=== PATIENT | female | born 1970 | race Caucasian/White ===

== ENCOUNTER → 2016-12-28 | Outpatient (CLI) | payer OTHER ==
--- NOTE | 2016-12-28 12:35 | REP ---
Clinical: Right upper quadrant pain. Technique: Real time alexandra scale ultrasound examination using curved array transducer. Findings: Liver demonstrates subcentimeter left lobe cyst and 3.1 cm right lobe lesion which is otherwise nonspecific. Gallbladder and biliary system are normal and there is no evidence for gallstones, wall thickening or pericholecystic fluid. No biliary ductal dilatation is appreciated and the common bile duct measures 4.8 mm diameter. Pancreas is incompletely evaluated. Right kidney is normal and without hydronephrosis measuring 11.7 x 4.7 x 4.3 cm. Impression: 1. Liver demonstrates subcentimeter cyst and 3 cm isoechoic nonspecific lesion in the right lobe. 2. Normal right kidney, gallbladder and biliary system. Signed by Brandon Leon MD 12/28/2016 12:27 P
== END ==
LOC: M LRY 08:26
PROVIDERS: ATTEND Physician Assistant
DX: K76.89 Other specified diseases of liver (principal); R10.11 Right upper quadrant pain

== ENCOUNTER → 2017-07-26 | Outpatient (CLI) | payer OTHER ==
--- NOTE | 2017-07-26 15:32 | REPMRS ---
Patient History The patient states she had a clinical breast exam in 07/2017. Family history of breast cancer in paternal aunt at age 50 or over and breast cancer in paternal grandmother under age 50. Benign US guided breast biopsy of the right breast, 2010. Took hormonal contraceptives for 14 years. Digital Woman Screen Mammo: July 26, 2017 - Exam #: [id number] Bilateral CC and MLO view(s) were taken. Technologist: Mirella Tracy, Technologist Prior study comparison: June 29, 2016, digital woman screen mammo performed at [facility] to [facility]. July 08, 2015, digital woman screen mammo performed at [facility]. November 10, 2013, left breast digital mammo diagnostic unilateral, performed at [facility]. FINDINGS: There are scattered fibroglandular densities. There is a needle biopsy marker clip in the right breast. There has been no change in the appearance of the mammogram from the prior studies. There is a mild amount of scattered fibroglandular density which is fairly symmetric. There is no interval development of dominant mass, architectural distortion, or clustered microcalcification suggestive of malignancy. ASSESSMENT: BI-RADS/ACR category 2 mammogram. Benign finding(s). Recommendation Routine screening mammogram in 1 year (for women over age 40). This mammogram was interpreted with the aid of an FDA-approved computer-aided dectection system. Electronically Signed By: Ron Gastelum MD 07/26/17 1632
== END ==
LOC: M WHC 14:07
PROVIDERS: ATTEND Family Medicine
DX: Z12.31 Encounter for screening mammogram for malignant neoplasm of breast (principal)

== ENCOUNTER 2017-12-24 12:59 | Emergency (ER) | payer OTHER ==
[2017-12-24] MEDS: NS 1,000 ML IV (14:30)
[2017-12-24 14:44] LABS: BASO % 0.2 % (0.0-1.0); EOS % 0.4 % (0.0-3.0); HEMATOCRIT 35.3 % (36.0-47.0); IMMATURE GRANULOCYTE % 0.3 % (0-3.0); LYMPH # 2.1 10^3/uL (1.5-4.5); MEAN CORPUSCULAR HEMOGLOBIN 31.6 pg (27.0-33.0); MEAN CORPUSCULAR VOLUME 92.9 fl (80.0-96.0); MONO # 0.5 10^3/uL (0.0-0.8); MONO % 4.7 % (0.0-5.0); NEUTROPHILS # 7.4 10^3/uL (1.8-7.7); NEUTROPHILS % 73.4 % (36.0-66.0); PLATELET COUNT, AUTOMATED 239 10^3/uL (150-450); RED CELL DISTRIBUTION WIDTH 11.9 % (11.5-14.5)
[2017-12-24 14:50] LABS: AMORPHOUS SEDIMENT RFX SMALL (NEGATIVE); KETONE, URINE AUTO RFX NEGATIVE (NEGATIVE); LEUKOCYTE ESTERASE UR AUTO RFX NEGATIVE (NEGATIVE); MUCUS, URINE RFX SMALL (NEGATIVE); NITRITE, URINE AUTO RFX NEGATIVE (NEGATIVE); RBC, URINE AUTO RFX 49 /HPF (0-3); SPECIFIC GRAVITY UR AUTO RFX 1.008 (1.002-1.035); SQUAM EPITHELIAL CELL UR AURFX 1 /HPF (0-6); WBC, URINE AUTO RFX 1 /HPF (0-3)
[2017-12-24 15:06] LABS: ANION GAP 7 MEQ/L (8-16); BLOOD UREA NITROGEN 12 MG/DL (7-18); CALCIUM LEVEL 8.5 MG/DL (8.5-10.1); CARBON DIOXIDE LEVEL 27 MEQ/L (21-32); CHLORIDE LEVEL 108 MEQ/L (98-107); CREATININE FOR GFR 0.67 MG/DL (0.55-1.30); GLOMERULAR FILTRATION RATE > 60.0 (>58); GLUCOSE, FASTING 90 MG/DL (70-100); POTASSIUM SERUM 3.9 MEQ/L (3.5-5.1); SODIUM LEVEL 142 MEQ/L (136-145)
== END 2017-12-24 15:49 | disposition home or self-care (01) ==
LOC: M ED 12:59
DX: N13.1 Hydronephrosis with ureteral stricture, not elsewhere classified (principal)
CPT/HCPCS: 80048

== ENCOUNTER → 2017-12-24 | Outpatient (CLI) | payer OTHER | LOC: M RAD 11:34 | DX: R10.9 Unspecified abdominal pain (principal) ==

== ENCOUNTER → 2017-12-24 | Outpatient (REF) | payer OTHER ==
[2017-12-24 13:54] LABS: APPEARANCE, URINE HAZY (CLEAR); BACTERIA, URINE AUTO NEGATIVE (NEGATIVE); BILIRUBIN, URINE AUTO NEGATIVE (NEGATIVE); BLOOD, URINE BLOOD 3+ (NEGATIVE); COLOR, URINE YELLOW (YELLOW); GLUCOSE, URINE (UA) AUTO NEGATIVE (NEGATIVE); KETONE, URINE AUTO TRACE mg/dL (NEGATIVE); LEUKOCYTE ESTERASE, URINE AUTO NEGATIVE (NEGATIVE); MUCUS, URINE SMALL (NEGATIVE); NITRITE, URINE AUTO NEGATIVE (NEGATIVE); PROTEIN, URINE AUTO NEGATIVE (NEGATIVE); RBC, URINE AUTO 121 /HPF (0-3); SPECIFIC GRAVITY URINE AUTO 1.025 (1.002-1.035); SQUAMOUS EPITHELIAL CELL UR AU 1 /HPF (0-6); UROBILINOGEN, URINE AUTO 0.2 mg/dL (0.0-2.0); WBC, URINE AUTO 2 /HPF (0-3)
== END ==
LOC: M SMT 13:20
DX: R10.9 Unspecified abdominal pain (principal)
CPT/HCPCS: 81001

== ENCOUNTER → 2018-01-09 | Outpatient (CLI) | payer OTHER | LOC: M LRY 13:14 | DX: Z01.818 Encounter for other preprocedural examination (principal); N20.1 Calculus of ureter ==

== ENCOUNTER → 2018-01-09 | Outpatient (REF) | payer OTHER ==
[2018-01-09 18:00] LABS: INR 0.97
[2018-01-09 18:01] LABS: PARTIAL THROMBOPLASTIN TIME 29.4 SECONDS (26.8-37.9)
[2018-01-09 18:20] LABS: ANION GAP 8 MEQ/L (8-16); BLOOD UREA NITROGEN 12 MG/DL (7-18); CALCIUM LEVEL 8.7 MG/DL (8.5-10.1); CARBON DIOXIDE LEVEL 26 MEQ/L (21-32); CHLORIDE LEVEL 108 MEQ/L (98-107); GLOMERULAR FILTRATION RATE > 60.0 (>58); GLUCOSE, FASTING 76 MG/DL (70-100); POTASSIUM SERUM 4.1 MEQ/L (3.5-5.1); SODIUM LEVEL 142 MEQ/L (136-145)
[2018-01-09 18:29] LABS: HEMOGLOBIN 12.9 g/dl (12.0-16.0); MEAN CORPUSCULAR HEMOGLOBIN 30.5 pg (27.0-33.0); MEAN CORPUSCULAR HGB CONC 32.3 g/dl (32.0-36.5); MEAN CORPUSCULAR VOLUME 94.6 fl (80.0-96.0); PLATELET COUNT, AUTOMATED 264 10^3/uL (150-450); RED BLOOD COUNT 4.23 10^6/uL (4.00-5.40); RED CELL DISTRIBUTION WIDTH 11.9 % (11.5-14.5); WHITE BLOOD COUNT 9.9 10^3/uL (4.0-10.0)
[2018-01-09 18:45] LABS: APPEARANCE, URINE CLEAR (CLEAR); BACTERIA, URINE AUTO 1+ (NEGATIVE); BILIRUBIN, URINE AUTO NEGATIVE (NEGATIVE); BLOOD, URINE BLOOD NEGATIVE (NEGATIVE); COLOR, URINE STRAW (YELLOW); GLUCOSE, URINE (UA) AUTO NEGATIVE (NEGATIVE); KETONE, URINE AUTO NEGATIVE (NEGATIVE); LEUKOCYTE ESTERASE, URINE AUTO NEGATIVE (NEGATIVE); NITRITE, URINE AUTO NEGATIVE (NEGATIVE); PROTEIN, URINE AUTO NEGATIVE (NEGATIVE); RBC, URINE AUTO 0 /HPF (0-3); SPECIFIC GRAVITY URINE AUTO 1.003 (1.002-1.035); SQUAMOUS EPITHELIAL CELL UR AU 2 /HPF (0-6); UROBILINOGEN, URINE AUTO 0.2 mg/dL (0.0-2.0); WBC, URINE AUTO 1 /HPF (0-3)
== END ==
LOC: M LABSMT 13:12
DX: N20.1 Calculus of ureter (principal); Z01.818 Encounter for other preprocedural examination

== ENCOUNTER 2018-01-15 12:15 | Day surgery (SDC) | payer OTHER ==
[2018-01-15] MEDS: LR 1,000 ML IV (13:05)
[2018-01-15] MEDS ORDERED: LIDOCAINE 2% INJ 100 MG/5 ML SDV (FOR ANES.) As Ordered (15:09)
[2018-01-15] MEDS ORDERED: fentaNYL 250 MCG/5 ML INJECTION (J3010) As Ordered (15:09)
[2018-01-15] MEDS ORDERED: MIDAZOLAM INJ 2 MG/2 ML VIAL (J2250) As Ordered (15:09)
[2018-01-15] MEDS ORDERED: ONDANSETRON 4MG/2ML VIAL (J2405) As Ordered (15:09)
[2018-01-15] MEDS ORDERED: dexameTHASONE 4 MG/ML 1ML VIAL (J1100) As Ordered (15:09)
[2018-01-15] MEDS: CONRAY-60 60% 50ML VIAL (Q9961) As Ordered (15:23)
[2018-01-15] MEDS ORDERED: ONDANSETRON 4MG/2ML VIAL (J2405) IV (16:00)
[2018-01-15] MEDS ORDERED: PERCOCET 5MG/325MG TAB PO ×2 (16:00)
[2018-01-15] MEDS ORDERED: LR 1,000 ML IV (16:00)
[2018-01-15] MEDS ORDERED: fentaNYL 100 MCG/2 ML INJECTION (J3010) IV (16:00)
[2018-01-15] MEDS: METOCLOPRAMIDE INJ 10MG/2ML VIAL (J2765) IV (17:01)
[2018-01-15] MEDS ORDERED: CIPROFLOXACIN 500 MG TAB PO (18:00)
== END 2018-01-15 17:45 | disposition home or self-care (01) ==
LOC: M SDC 12:15
DX: N13.2 Hydronephrosis with renal and ureteral calculous obstruction (principal); J45.20 Mild intermittent asthma, uncomplicated; K64.8 Other hemorrhoids; I51.7 Cardiomegaly; M54.2 Cervicalgia; Z90.710 Acquired absence of both cervix and uterus; Z98.51 Tubal ligation status
CPT/HCPCS: 52356

== ENCOUNTER → 2018-01-29 | Outpatient (REF) | payer OTHER ==
[2018-01-29 18:48] LABS: APPEARANCE, URINE HAZY (CLEAR); BACTERIA, URINE AUTO NEGATIVE (NEGATIVE); BILIRUBIN, URINE AUTO NEGATIVE (NEGATIVE); BLOOD, URINE BLOOD NEGATIVE (NEGATIVE); COLOR, URINE YELLOW (YELLOW); GLUCOSE, URINE (UA) AUTO NEGATIVE (NEGATIVE); KETONE, URINE AUTO NEGATIVE (NEGATIVE); LEUKOCYTE ESTERASE, URINE AUTO NEGATIVE (NEGATIVE); MUCUS, URINE SMALL (NEGATIVE); NITRITE, URINE AUTO NEGATIVE (NEGATIVE); PROTEIN, URINE AUTO NEGATIVE (NEGATIVE); RBC, URINE AUTO 2 /HPF (0-3); SPECIFIC GRAVITY URINE AUTO 1.017 (1.002-1.035); SQUAMOUS EPITHELIAL CELL UR AU 2 /HPF (0-6); UROBILINOGEN, URINE AUTO 0.2 mg/dL (0.0-2.0); WBC, URINE AUTO 1 /HPF (0-3)
== END ==
LOC: M SMT 17:07
DX: Z46.6 Encounter for fitting and adjustment of urinary device (principal)

== ENCOUNTER → 2018-02-25 | Outpatient (CLI) | payer OTHER ==
[~2018-02-25] MED LIST: ISOVUE-370 76% 100ML VIAL (Q9967) As Ordered
== END ==
LOC: M RAD 17:34
DX: K57.30 Diverticulosis of large intestine without perforation or abscess without bleeding (principal); K76.89 Other specified diseases of liver; Z87.442 Personal history of urinary calculi; N28.1 Cyst of kidney, acquired
CPT/HCPCS: Q9967

== ENCOUNTER → 2018-10-21 | Outpatient (CLI) | payer OTHER | LOC: M RAD 16:56 | DX: R31.0 Gross hematuria (principal) | CPT/HCPCS: 76775 ==

== ENCOUNTER → 2018-10-21 | Outpatient (REF) | payer OTHER ==
[2018-10-21 18:52] LABS: APPEARANCE, URINE CLEAR (CLEAR); BACTERIA, URINE AUTO NEGATIVE (NEGATIVE); BILIRUBIN, URINE AUTO NEGATIVE (NEGATIVE); BLOOD, URINE BLOOD 1+ (NEGATIVE); COLOR, URINE YELLOW (YELLOW); GLUCOSE, URINE (UA) AUTO NEGATIVE (NEGATIVE); KETONE, URINE AUTO NEGATIVE (NEGATIVE); LEUKOCYTE ESTERASE, URINE AUTO NEGATIVE (NEGATIVE); MUCUS, URINE SMALL (NEGATIVE); NITRITE, URINE AUTO NEGATIVE (NEGATIVE); PROTEIN, URINE AUTO NEGATIVE (NEGATIVE); RBC, URINE AUTO 2 /HPF (0-3); SPECIFIC GRAVITY URINE AUTO 1.017 (1.002-1.035); SQUAMOUS EPITHELIAL CELL UR AU 0 /HPF (0-6); UROBILINOGEN, URINE AUTO 0.2 mg/dL (0.0-2.0); WBC, URINE AUTO 1 /HPF (0-3)
== END ==
LOC: M SFHCPLAZ 17:01
DX: R30.0 Dysuria (principal)

== ENCOUNTER → 2019-02-13 | Outpatient (CLI) | payer OTHER ==
[~2019-02-13] MED LIST changes: +ALBU83IN INH; +AMLO5TAB6 PO; +CIPR500T3 PO; +FLOM0.4C39 PO; -ISOVUE-370 76% 100ML VIAL (Q9967) As Ordered; +MOTR200T44 PO; +OXYCOD/APAP PO; +PERCOCET PO; +ZOFR4TAB14 PO
[2019-02-13 11:22] LABS: BASO % 0.4 % (0.0-1.0); EOS # 0.2 10^3/uL (0.0-0.50); HEMATOCRIT 35.4 % (36.0-47.0); HEMOGLOBIN 11.6 g/dl (12.0-15.5); LYMPH # 1.6 10^3/uL (1.5-4.5); LYMPH % 22.3 % (24.0-44.0); MEAN CORPUSCULAR HEMOGLOBIN 32.2 pg (27.0-33.0); MEAN CORPUSCULAR HGB CONC 32.8 g/dl (32.0-36.5); MEAN CORPUSCULAR VOLUME 98.3 fl (80.0-96.0); MONO # 0.4 10^3/uL (0.0-0.8); MONO % 5.3 % (0.0-5.0); NEUTROPHILS # 5.1 10^3/uL (1.8-7.7); NEUTROPHILS % 69.7 % (36.0-66.0); PLATELET COUNT, AUTOMATED 241 10^3/uL (150-450); WHITE BLOOD COUNT 7.4 10^3/uL (4.0-10.0)
[2019-02-13 11:39] LABS: ALT/SGPT 18 U/L (12-78); BLOOD UREA NITROGEN 19 MG/DL (7-18); CALCIUM LEVEL 8.6 MG/DL (8.5-10.1); CARBON DIOXIDE LEVEL 29 MEQ/L (21-32); CHLORIDE LEVEL 107 MEQ/L (98-107); CHOLESTEROL LEVEL 148 MG/DL (<200); CHOLESTEROL RISK RATIO 3.441 (<5); CPK CREATINE PHOSPHOKINASE 45 U/L (26-192); CREATININE FOR GFR 0.68 MG/DL (0.55-1.30); FREE T4 1.07 NG/DL (0.76-1.46); GLOMERULAR FILTRATION RATE > 60.0 (>58); GLUCOSE, FASTING 87 MG/DL (70-100); HDL CHOLESTEROL 43 MG/DL (>40); LDL CHOLESTEROL 79 MG/DL (<100); NON-HDL-C 105 MG/DL; POTASSIUM SERUM 3.8 MEQ/L (3.5-5.1); SODIUM LEVEL 143 MEQ/L (136-145); TRIGLYCERIDES LEVEL 128 MG/DL (<150)
== END ==
LOC: M LRY 07:51
PROVIDERS: ATTEND Internal Medicine Cardiovascular Disease
DX: I10 Essential (primary) hypertension (principal); I71.2 Thoracic aortic aneurysm, without rupture; Z82.49 Family history of ischemic heart disease and other diseases of the circulatory system

== ENCOUNTER → 2019-08-07 | Outpatient (REF) | payer OTHER ==
[2019-08-07 20:29] LABS: HEMATOCRIT 34.5 % (36.0-47.0); HEMOGLOBIN 11.4 g/dl (12.0-15.5); MEAN CORPUSCULAR HEMOGLOBIN 32.1 pg (27.0-33.0); MEAN CORPUSCULAR VOLUME 97.2 fl (80.0-96.0); PLATELET COUNT, AUTOMATED 230 10^3/uL (150-450); RED BLOOD COUNT 3.55 10^6/uL (4.00-5.40)
[2019-08-07 20:40] LABS: HEMATOCRIT 34.5 % (36.0-47.0)
[2019-08-07 20:46] LABS: PERCENT SATURATION 21.3 % (13.2-45.0)
== END ==
LOC: M SFHCPLAZ 17:53
PROVIDERS: ATTEND Family Medicine
DX: Z46.6 Encounter for fitting and adjustment of urinary device (principal); D64.9 Anemia, unspecified

== ENCOUNTER → 2019-12-31 | Outpatient (CLI) | payer OTHER ==
[2019-12-31 12:35] LABS: CHOLESTEROL RISK RATIO 3.02 (<5)
== END ==
LOC: M LRY 08:10
PROVIDERS: ATTEND Internal Medicine Cardiovascular Disease
DX: I71.2 Thoracic aortic aneurysm, without rupture (principal); Z82.49 Family history of ischemic heart disease and other diseases of the circulatory system

== ENCOUNTER → 2019-12-31 | Outpatient (REF) | payer OTHER ==
[2019-12-31 13:08] LABS: BASO % 0.5 % (0.0-1.0); EOS # 0.2 10^3/uL (0.0-0.5); EOS % 2.6 % (0.0-3.0); HEMATOCRIT 35.2 % (36.0-47.0); HEMOGLOBIN 11.4 g/dl (12.0-15.5); LYMPH # 1.7 10^3/uL (1.5-5.0); LYMPH % 21.4 % (24.0-44.0); MEAN CORPUSCULAR HEMOGLOBIN 32.5 pg (27.0-33.0); MEAN CORPUSCULAR HGB CONC 32.4 g/dl (32.0-36.5); MEAN CORPUSCULAR VOLUME 100.3 fl (80.0-96.0); MONO # 0.4 10^3/uL (0.0-0.8); MONO % 4.5 % (0.0-5.0); NEUTROPHILS # 5.6 10^3/uL (1.5-8.5); NEUTROPHILS % 70.6 % (36.0-66.0); PLATELET COUNT, AUTOMATED 241 10^3/uL (150-450); RED BLOOD COUNT 3.51 10^6/uL (4.00-5.40); WHITE BLOOD COUNT 7.9 10^3/uL (4.0-10.0)
== END ==
LOC: M SFHCLERA 08:18
PROVIDERS: ATTEND Family Medicine
DX: D72.829 Elevated white blood cell count, unspecified (principal); E53.8 Deficiency of other specified B group vitamins

== ENCOUNTER → 2020-02-05 | Outpatient (REF) | payer OTHER ==
[2020-02-05 11:27] LABS: APPEARANCE, URINE CLEAR (CLEAR); BACTERIA, URINE AUTO 1+ (NEGATIVE); BILIRUBIN, URINE AUTO NEGATIVE (NEGATIVE); BLOOD, URINE BLOOD NEGATIVE (NEGATIVE); COLOR, URINE STRAW (YELLOW); GLUCOSE, URINE (UA) AUTO NEGATIVE (NEGATIVE); KETONE, URINE AUTO NEGATIVE (NEGATIVE); LEUKOCYTE ESTERASE, URINE AUTO NEGATIVE (NEGATIVE); NITRITE, URINE AUTO NEGATIVE (NEGATIVE); PROTEIN, URINE AUTO NEGATIVE (NEGATIVE); RBC, URINE AUTO 1 /HPF (0-3); SPECIFIC GRAVITY URINE AUTO 1.008 (1.002-1.035); SQUAMOUS EPITHELIAL CELL UR AU 0 /HPF (0-6); UROBILINOGEN, URINE AUTO 0.2 mg/dL (0.0-2.0); WBC, URINE AUTO 1 /HPF (0-3)
[2020-02-05 12:44] LABS: BLOOD UREA NITROGEN 19 MG/DL (7-18); CALCIUM LEVEL 8.6 MG/DL (8.5-10.1); CARBON DIOXIDE LEVEL 29 MEQ/L (21-32); CHLORIDE LEVEL 105 MEQ/L (98-107); CREATININE FOR GFR 0.74 MG/DL (0.55-1.30); GLOMERULAR FILTRATION RATE > 60.0 (>58); GLUCOSE, FASTING 96 MG/DL (70-100); POTASSIUM SERUM 3.8 MEQ/L (3.5-5.1); SODIUM LEVEL 139 MEQ/L (136-145)
== END ==
LOC: M SFHCPLAZ 08:36
PROVIDERS: ATTEND Family Medicine
DX: R31.29 Other microscopic hematuria (principal); I10 Essential (primary) hypertension

== ENCOUNTER 2020-11-10 09:55 | Emergency (ER) | payer OTHER ==
[~2020-11-10] VITALS: Ht 167.6 cm; Wt 109.8 kg
[2020-11-10 09:55] VITALS: BP 134/76
[~2020-11-10 09:55] MED LIST changes: +AMLO1TAB24 PO; -AMLO5TAB6 PO
[2020-11-10] MEDS ORDERED: LOSA100T50 (10:04)
[2020-11-10] MEDS ORDERED: HYDR12.55 (10:04)
--- NOTE | 2020-11-10 11:31 | REP ---
INDICATION: left FP COMPARISON: 02/25/2018 TECHNIQUE: Axial noncontrast images from the lung bases to the pubic symphysis with coronal and sagittal reformations. This CT examination was performed using the following dose reduction techniques: Automated exposure control, adjustment of mA and/or kv according to the patient's size, and use of iterative reconstruction technique. FINDINGS: Lung bases are clear. Visualized heart and pericardium normal. Liver, spleen, pancreas, gallbladder, bilateral adrenal glands and kidneys are normal. Specifically, there is no evidence for perinephric stranding, hydroureteronephrosis, intrarenal or obstructing ureteral calculi. The enteric system is unremarkable and without obstruction or acute inflammatory process. Normal terminal ileum and appendix identified in the right lower quadrant. Pelvis demonstrates normal bladder and partial hysterectomy. No ascites. No free air. No adenopathy. No focal inflammatory stranding. Abdominal aorta without aneurysm. Musculoskeletal structures are intact and without acute osseous abnormality. IMPRESSION: 1. No acute abdominopelvic pathology appreciated. 2. Normal appearance to the urinary tract system. <Electronically signed by Brandon Leon > 11/10/20 1122
== END 2020-11-10 12:15 | disposition home or self-care (01) ==
LOC: M ED 09:55
DX: R31.9 Hematuria, unspecified (principal); R10.9 Unspecified abdominal pain; I10 Essential (primary) hypertension; J45.909 Unspecified asthma, uncomplicated; I71.2 Thoracic aortic aneurysm, without rupture; Z87.442 Personal history of urinary calculi; Z79.899 Other long term (current) drug therapy

== ENCOUNTER → 2020-11-23 | Outpatient (REF) | payer OTHER ==
[~2020-11-23] MED LIST changes: +HYDR12.55; +LOSA100T50
[2020-11-23 13:12] LABS: APPEARANCE, URINE CLEAR (CLEAR); BACTERIA, URINE AUTO NEGATIVE (NEGATIVE); BILIRUBIN, URINE AUTO NEGATIVE (NEGATIVE); BLOOD, URINE BLOOD 1+ (NEGATIVE); COLOR, URINE YELLOW (YELLOW); GLUCOSE, URINE (UA) AUTO NEGATIVE (NEGATIVE); KETONE, URINE AUTO NEGATIVE (NEGATIVE); LEUKOCYTE ESTERASE, URINE AUTO NEGATIVE (NEGATIVE); MUCUS, URINE SMALL (NEGATIVE); NITRITE, URINE AUTO NEGATIVE (NEGATIVE); PROTEIN, URINE AUTO NEGATIVE (NEGATIVE); RBC, URINE AUTO 2 /HPF (0-3); SPECIFIC GRAVITY URINE AUTO 1.014 (1.002-1.035); SQUAMOUS EPITHELIAL CELL UR AU 1 /HPF (0-6); UROBILINOGEN, URINE AUTO 0.2 mg/dL (0.0-2.0); WBC, URINE AUTO 1 /HPF (0-3)
== END ==
LOC: M PLALAB 08:12
PROVIDERS: ATTEND Family Medicine
DX: Z00.00 Encounter for general adult medical examination without abnormal findings (principal); D51.9 Vitamin B12 deficiency anemia, unspecified; Z13.220 Encounter for screening for lipoid disorders; I10 Essential (primary) hypertension; R31.9 Hematuria, unspecified

== ENCOUNTER → 2021-06-23 | Outpatient (CLI) | payer OTHER ==
--- NOTE | 2021-06-23 09:01 | REP ---
INDICATION: K76.89LIVER CYST. COMPARISON: 12/28/2016 TECHNIQUE: Real-time sonographic evaluation of the right upper quadrant. FINDINGS: Multiple ultrasonographic images of the liver show the hepatic parenchymal echo texture to appear unremarkable. Once again, there is a hypoechoic area seen in the right lobe of the liver which appears to have increased slightly in size and irregularity when the technical differences between the examinations are taken into consideration. Incidental hepatic cysts are also noted. There is no intrahepatic ductal dilatation. The common bile duct measures approximately 2 mm in its greatest transverse dimension. Multiple ultrasonographic images of the gallbladder show no focal or diffuse gallbladder wall thickening. There are no echogenic foci within the gallbladder lumen, which casts acoustic shadows. There is no pericholecystic edema. Images of the pancreatic region show no gross abnormality. The imaged portion of the right kidney is unremarkable. IMPRESSION: Nonspecific solid hypoechoic area seen in the liver as described above. Pre and post contrast enhanced hepatic CT is recommended so it can be compared to the prior CT of 02/25/2018 done in the same fashion. Accredited by the [employer] in General Ultrasound. <Electronically signed by Tj Valencia > 06/23/21 0858
== END ==
LOC: M WHC 07:59
PROVIDERS: ATTEND Family Medicine
DX: K76.89 Other specified diseases of liver (principal)

== ENCOUNTER → 2021-07-05 | Outpatient (CLI) | payer OTHER ==
[~2021-07-05] MED LIST changes: +ISOVUE-370 76% 100ML VIAL As Ordered ONE
--- NOTE | 2021-07-05 16:08 | REP ---
INDICATION: LIVER NODULE. COMPARISON: Multiple latest 11/10/2020 noncontrast enhanced exam. Prior liver ultrasound 06/23/2021 also reviewed. TECHNIQUE: Standard helical technique before and after intravenous contrast. 100 cc Isovue 370 was utilized. No oral bowel preparatory contrast was administered prior to the exam. FINDINGS: The lung bases are clear and unchanged. Inferior to the inferior edge of the posterior segment of the right lobe of the liver there is a 3.9 by 4.1 by 3.1 cm sized cystic appearing nodule. This has slightly higher than water density Hounsfield unit readings and showing no evidence of perceptible or measurable contrast-enhancement. This is separate from the liver with a clear fat plane demarcating it from the hepatic edge. The liver is also seen with a simple cyst in the lateral segment of the left lobe which measures 1.4 cm. There are no enhancing hepatic lesions. The gallbladder, spleen, pancreas, adrenal glands, and kidneys are within normal limits. The abdominal aorta and para aortic regions are within normal limits. The aforementioned low-density nodule abuts the ascending colon with evidence of colonic wall maintenance. The bowel loops and their mesenteries are within normal limits. A single nonenlarged lymph node is seen in the proximal left common iliac arterial chain. This measures 9 mm in its greatest dimension. There is no evidence of free fluid or free air. There is no significant change in appearance of the imaged osseous structures. IMPRESSION: 1. Unchanged cyst inferior to the hepatic edge as described above. This has been stable for many years. 2. Stable small lymph node in the proximal left common iliac arterial lymph node chain. 3. Stable simple hepatic cyst as described above. 4. Other findings as described above. There is no evidence of acute disease. <Electronically signed by Tj Valencia > 07/05/21 [id number]
== END ==
LOC: M RAD 15:08
PROVIDERS: ATTEND Family Medicine
DX: K76.89 Other specified diseases of liver (principal)
CPT/HCPCS: 74170; Q9967

== ENCOUNTER → 2021-07-30 | Outpatient (CLI) | payer OTHER ==
[~2021-07-30] MED LIST changes: -ISOVUE-370 76% 100ML VIAL As Ordered ONE
[2021-07-30 11:09] LABS: BLOOD UREA NITROGEN 17 MG/DL (7-18); CALCIUM LEVEL 8.3 MG/DL (8.5-10.1); CARBON DIOXIDE LEVEL 30 MEQ/L (21-32); CHLORIDE LEVEL 108 MEQ/L (98-107); CREATININE FOR GFR 0.74 MG/DL (0.55-1.30); GLOMERULAR FILTRATION RATE > 60.0 (>58); GLUCOSE, FASTING 102 MG/DL (70-100); POTASSIUM SERUM 3.4 MEQ/L (3.5-5.1); SODIUM LEVEL 142 MEQ/L (136-145)
== END ==
LOC: M LAB 10:09
PROVIDERS: ATTEND Family Medicine
DX: I10 Essential (primary) hypertension (principal)

== ENCOUNTER → 2021-08-28 | Outpatient (CLI) | payer OTHER ==
--- NOTE | 2021-08-28 19:18 | REP ---
INDICATION: DYSPNEA, UNSPECIFIED COMPARISON: 01/09/2018 TECHNIQUE: PA and lateral. FINDINGS: The mediastinum and cardiac silhouette are normal. The lung brothers are clear and without acute consolidation, effusion, or pneumothorax. The skeletal structures are intact and normal. IMPRESSION: No acute cardiopulmonary process. <Electronically signed by Brandon Leon > 08/28/21 1918
== END ==
LOC: M RAD 18:17
PROVIDERS: ATTEND Family Medicine
DX: R06.00 Dyspnea, unspecified (principal)

== ENCOUNTER 2021-09-18 07:48 | Emergency (ER) | payer OTHER ==
[~2021-09-18] VITALS: Ht 170.2 cm; Wt 113.0 kg
--- OUTSIDE RECORDS SUMMARY | 2021-09-18 07:52 | CCD ---
Author Author [facility] Organization [facility] Address Unknown Phone Unavailable Care Team Providers Care Heel Emery Buffer Name Role Phone Humaira Thomas Unavailable PROBLEMS Type Condition ICD9-CM Code [id number] Code Onset Dates Condition S tatus W/U Status Risk SNOMED Code Notes Problem Mild intermittent asthma without complication J45. 20 Active confirmed 420289963 Problem Essential hypertension I10 Active confirmed 94592767 Problem Gastroesophageal reflux disease K21.9 Active confi rmed 448334725 Problem Screening for skin cancer Z12.83 Active confirmed 312697380 Problem Liver nodule K76.89 Active confirmed 8067657 07 Problem Thoracic aortic aneurysm without rupture I71.2 Active confirmed 28230377 Problem Seborrheic keratoses L82.1 Active confirmed 746504349 Problem Lentigines L81.4 Active confirmed 252441402 Problem Melanocytic nevus of skin D22.9 Active confirmed 022176268 ALLERGIES No Known Allergies ENCOUNTERS from 1972 to 2021-07-31 Encounter Location Date Provider Diagnosis [address] [phone] [place] [address] Jul, Humaira Thomas Hypokalemia E87.6 IMMUNIZATIONS Vaccine Route Administration Date Status TDAP 0.5mL (Boostrix) IM Intramuscular Aug 13, 2019 Administe red Influenza 6mo & up Fluzone IM Intramuscular Nov 17, 2014 Admi nistered SOCIAL HISTORY Tobacco Use: Social History Observation Description Date Details (start date - stop date) Never Smoker Sex Assigned At : Social History Observation Description Sex Assigned At Unknown Education: Question Answer Notes Level of Education: High School Audit Question Answer Notes Total Score: 1 Interpretation: Alcohol Education Language: Question Answer Notes Languages spoken: Moroccan Holiness: Question Answer Notes Holiness 33 None Drug and Alcohol Question Answer Notes Total Score: 0 Interpretation: No problems reported Alcohol Screening: Question Answer Notes Did you have a drink containing alcohol in the past year? No Points 0 Interpretation Negative BMI Care Goal Follow-Up Question Answer Notes Above Normal BMI Follow-Up Lifestyle education regarding t Tobacco Use: Question Answer Notes Are you a: never smoker never smoker REASON FOR REFERRAL No Information VITAL SIGNS No information MEDICATIONS Medication SIG (Take, Route, Frequency, Duration) Notes Start Da te End Date Status Pantoprazole Sodium 40 MG 1 tablet Orally Once a day as needed PRN Dec, Active Losartan Potassium 100 MG 1 tablet Orally Once a day Active Cyanocobalamin 1000 MCG 1 tablet under the tongue an d allow to dissolve Sublingual Once a day Dec, Not-Taking Hydrochlorothiazide 12.5 MG 1 tab Oral Daily for 7 day(s) Active Lasix 20 MG 1 tablet Orally as needed Once a day PRN Active PROCEDURES No Information RESULTS No Results REASON FOR VISIT hypokalemia MEDICAL (GENERAL) HISTORY Type Description Date Medical History Seasonal/allergy induced asthma Medical History External hemorrhoids intermittent Medical History History of nephrolithiasis Medical History Hypertension Medical History GERD Medical History Thoracic aortic aneurysm 3.9 cm on Echo - [facility] Medical History Echo showed normal LV, EF 60% in 06/2018 Medical History Nuclear stress test normal 06/2018 at [facility] Medical History ASCVD risk 0.4% in 02/2019 Surgical History Vaginal hysterectomy (ovaries left in pl [address]) for AUB 2002 Surgical History Bilateral tubal ligation Surgical History D&C Surgical History bunionectomy Surgical History Ureteroscopy(stone removal) 01/15/2018 Hospitalization History No Hospitalization history informati on Goals Section No Information Health Concerns No Information MEDICAL EQUIPMENT No Information MENTAL STATUS No Information FUNCTIONAL STATUS No Information ASSESSMENTS Encounter Date Diagnosis Assessment Notes Treatment Notes Treatm ent Clinical Notes Jul, Hypokalemia (ICD-10 - E87.6) PLAN OF TREATMENT Medication Medication Name Sig Start Date Stop Date Hydrochlorothiazide 12.5 MG 1 tab Oral Daily for 7 day(s) Future Test Test Name Order Date Basic Metabolic Profile (BMP) [id number] Next Appt Details Provider Name:Humaira Chavez Martha, 2022-01-05 08:15:00 AM, [address] [facility], , [place], [address], Provider Name:Carol Doty, 2022-06-20 03:45:00 PM, [address] [place] [address], , [place], [address], Insurance Providers Payer Name Payer Address Payer Phone Insured Name Patient Relati onship to Insured Coverage Start Date Coverage End Date [facility] [address] [facility] [id number] ELIZABETH STYLES self
--- OUTSIDE RECORDS SUMMARY | 2021-09-18 07:52 | CCD ---
Author Author [facility] Organization [facility] Address Unknown Phone Unavailable Care Team Providers Care Adult Care Provider Name Role Phone Humaira Thomas Unavailable PROBLEMS Type Condition ICD9-CM Code [id number] Code Onset Dates Condition S tatus W/U Status Risk SNOMED Code Notes Problem Mild intermittent asthma without complication J45. 20 Active confirmed 845745690 Problem Essential hypertension I10 Active confirmed 56629839 Problem Gastroesophageal reflux disease K21.9 Active confi rmed 245054635 Problem Screening for skin cancer Z12.83 Active confirmed 339893797 Problem Liver nodule K76.89 Active confirmed 1774383 07 Problem Thoracic aortic aneurysm without rupture I71.2 Active confirmed 58557617 Problem Seborrheic keratoses L82.1 Active confirmed 792195738 Problem Lentigines L81.4 Active confirmed 496515047 Problem Melanocytic nevus of skin D22.9 Active confirmed 145022363 ALLERGIES No Known Allergies ENCOUNTERS from 1972 to 2021-08-28 Encounter Location Date Provider Diagnosis [address] [phone] [place] [address] Aug, Humaira Thomas Essential hypertension I10 a nd SOTELO (dyspnea on exertion) R06.00 IMMUNIZATIONS Vaccine Route Administration Date Status TDAP [...] Education Language: Question Answer Notes Languages spoken: Venezuelan Yarsanism: Question Answer Notes Yarsanism 33 None Drug and Alcohol Question Answer [...] REASON FOR REFERRAL No Information VITAL SIGNS Weight 245.8 lbs Aug, Height 65 in Aug, BMI 40.90 kg/m2 Aug, Heart Rate 109 /min Aug, Respiratory Rate 18 /min Aug, Temperature 96.6 degrees Fahrenheit Aug, Oximetry 97 Aug, Blood pressure systolic 116 mm Hg Aug, Blood pressure diastolic 78 mm Hg Aug, MEDICATIONS Medication SIG (Take, Route, Frequency, Duration) Notes Start Da te End Date Status Cyanocobalamin 1000 MCG 1 tablet under the tongue an d allow to dissolve Sublingual Once a day Dec, Not-Taking Pantoprazole Sodium 40 MG 1 tablet Orally Once a day as needed PRN Dec, Active Losartan Potassium 100 MG 1 tablet Orally Once a day Active Lasix 20 MG 1 tablet Orally as needed Once a day PRN Active Hydrochlorothiazide 12.5 MG 1 tab Oral Daily for 90 days Active PROCEDURES from 1972 to 2021-08-28 Procedure Date Ordered Result Body Site ELECTROCARDIOGRAM, COMPLETE EKG 2021-08-25 N/A RESULTS No Results REASON FOR VISIT blood pressure issues, Review outside labs MEDICAL (GENERAL) HISTORY Type Description Date Medical History Seasonal/allergy induced asthma Medical History External hemorrhoids intermittent Medical History History of nephrolithiasis Medical History Hypertension Medical History GERD Medical History Thoracic aortic aneurysm 3.9 cm on Echo - [facility] Medical History Echo showed normal LV, EF 60% in 06/2018 Medical History Nuclear stress test normal 06/2018 at [facility] Medical History ASCVD risk 0.4% in 02/2019 [...] Notes Treatment Notes Treatm ent Clinical Notes Aug, Essential hypertension (ICD-10 - I10) BP is at goal today; continue current medications. Aug, SOTELO (dyspnea on exertion) (ICD-10 - R06.00) I am concerned for angina as cause of SOTELO; no other symptoms of asthma and lungs are clear today. Will check CXR. EKG today shows NSR, possible LVH, abnormal R wave progression; similar to EKG done 01/2020. I strongly recommended cardiology f/u sooner than Feb for possible repeat stress test. She agrees to call them today to schedule. I will also have my nurse notify cardiology office of her symptoms and that I recommend appt sooner for evaluation, and we will fax them her recent EKG and labs. I recommended ED evaluation if chest pain recurs or if SOTELO does not resolve within 5 min of rest; she verbalized understanding and agrees with plan. PLAN OF TREATMENT Medication Medication Name Sig Start Date Stop Date Losartan Potassium 100 MG 1 tablet Orally Once a day Lasix 20 MG 1 tablet Orally as needed Once a day Hydrochlorothiazide 12.5 MG 1 tab Oral Daily for 90 days Treatment Notes Assessment Notes Clinical Notes Essential hypertension BP is at goal tod ay; continue current medications. SOTELO (dyspnea on exertion) I am concerned for angina as cause of SOTELO; no other symptoms of asthma and lungs are clear today. Will check CXR.EKG today shows NSR, possible LVH, abnormal R wave progression; similar to EKG done 01/2020. I strongly recommended cardiology f/u sooner than b for possible repeat stress test. She agrees to call them today to schedule. I will also have my nurse notify cardiology office of her symptoms and that I recommend appt sooner for evaluation, and we will fax them her recent EKG and labs.I recommended ED evaluation if chest pain recurs or if SOTELO does not resolve within 5 min of rest; she verbalized understanding and agrees with plan. Future Test Test Name Order Date [facility] Chest, 2 view (PA\Lat) [id number] Next Appt Details as sched 12/2020 Reason: Provider Name:Humaira Thomas, 2022-01-05 08:15:00 AM, [address] [facility], , [place], [address], Provider Name:Carol Doty, 2022-06-20 03:45:00 PM, [address] [facility], , [place], [address], Insurance Providers Payer Name Payer Address Payer Phone Insured Name Patient Relati onship to Insured Coverage Start Date Coverage End Date [facility] [address] [facility] [address] [phone] ELIZABETH STYLES self
--- OUTSIDE RECORDS SUMMARY | 2021-09-18 07:52 | CCD ---
Author Author [facility] Organization [facility] Address Unknown Phone Unavailable Care Team Providers Care Aircraft Hydraulic Equipment Mechanic Name Role Phone Humaira Thomas Unavailable PROBLEMS Type Condition ICD9-CM Code [id number] Code Onset Dates Condition S tatus W/U Status Risk SNOMED Code Notes Problem Mild intermittent asthma without complication J45. 20 Active confirmed 831699032 Problem Essential hypertension I10 Active confirmed 88979132 Problem Gastroesophageal reflux disease K21.9 Active confi rmed 801839391 Problem Screening for skin cancer Z12.83 Active confirmed 026216768 Problem Liver nodule K76.89 Active confirmed 8977173 07 Problem Thoracic aortic aneurysm without rupture I71.2 Active confirmed 40197755 Problem Seborrheic keratoses L82.1 Active confirmed 698115164 Problem Lentigines L81.4 Active confirmed 438345793 Problem Melanocytic nevus of skin D22.9 Active confirmed 914763583 ALLERGIES No Known Allergies ENCOUNTERS from 1972 to 2021-08-25 Encounter Location Date Provider Diagnosis [address] [phone] [place] [address] Aug, Humaira Thomas Essential hypertension I10 IMMUNIZATIONS Vaccine Route Administration Date Status TDAP [...] Education Language: Question Answer Notes Languages spoken: Salvadorean Mu-Ism: Question Answer Notes Mu-Ism 33 None Drug and Alcohol Question Answer [...] Oral Daily for 90 days Active PROCEDURES No Information RESULTS No Results REASON FOR VISIT Refill - [facility] MEDICAL (GENERAL) HISTORY Type Description Date Medical History Seasonal/allergy induced asthma Medical History External hemorrhoids intermittent Medical History History of nephrolithiasis Medical History Hypertension Medical History GERD Medical History Thoracic aortic aneurysm 3.9 cm on Echo - [facility] Medical History Echo showed normal LV, EF 60% in 06/2018 Medical History Nuclear stress test normal 06/2018 at [facility] Medical History ASCVD risk 0.4% in 02/2019 [...] Notes Aug, Essential hypertension (ICD-10 - I10) PLAN OF TREATMENT Medication Medication Name Sig Start Date Stop Date Losartan Potassium 100 MG 1 tablet Orally Once a day Lasix 20 MG 1 tablet Orally as needed Once a day Hydrochlorothiazide 12.5 MG 1 tab Oral Daily for 90 days Next Appt Details Provider Name:Humaira Thomas, 2022-01-05 08:15:00 AM, [address] [facility], , [place], [address], Provider Name:Carol Doty, 2022-06-20 03:45:00 PM, [address] [facility], , [place], [address], Insurance Providers Payer Name Payer Address Payer Phone Insured Name Patient Relati onship to Insured Coverage Start Date Coverage End Date [employer] [address] [facility] [address] [phone] ELIZABETH STYLES self
--- OUTSIDE RECORDS SUMMARY | 2021-09-18 07:52 | CCD ---
Author Author [facility] Organization [facility] Address Unknown Phone Unavailable Care Team Providers Care Mathematician Name Role Phone Humaira Thomas Unavailable PROBLEMS Type Condition ICD9-CM Code [id number] Code Onset Dates Condition S tatus W/U Status Risk SNOMED Code Notes Problem Mild intermittent asthma without complication J45. 20 Active confirmed 099675999 Problem Essential hypertension I10 Active confirmed 49712088 Problem Gastroesophageal reflux disease K21.9 Active confi rmed 131340094 Problem Screening for skin cancer Z12.83 Active confirmed 169304559 Problem Liver nodule K76.89 Active confirmed 6332261 07 Problem Thoracic aortic aneurysm without rupture I71.2 Active confirmed 63840663 Problem Seborrheic keratoses L82.1 Active confirmed 201154603 Problem Lentigines L81.4 Active confirmed 490115107 Problem Melanocytic nevus of skin D22.9 Active confirmed 717327228 ALLERGIES No Known Allergies ENCOUNTERS from 1972 to 2021-08-29 Encounter Location Date Provider Diagnosis [address] [phone] [place] [address] Aug, Humaira Thomas IMMUNIZATIONS Vaccine Route Administration Date Status TDAP [...] Education Language: Question Answer Notes Languages spoken: Welsh Taoism: Question Answer Notes Taoism 33 None Drug and Alcohol Question Answer [...] Information RESULTS No Results REASON FOR VISIT CXR MEDICAL (GENERAL) HISTORY Type Description Date Medical History Seasonal/allergy induced asthma Medical History External hemorrhoids intermittent Medical History History of nephrolithiasis Medical History Hypertension Medical History GERD Medical History Thoracic aortic aneurysm 3.9 cm on Echo - [facility] Medical History Echo showed normal LV, EF 60% in 06/2018 Medical History Nuclear stress test normal 06/2018 at [facility] Medical History ASCVD risk 0.4% in 02/2019 Surgical History Vaginal hysterectomy (ovaries left in [facility] [place]) for AUB 2002 Surgical History Bilateral tubal ligation Surgical History D&C Surgical History bunionectomy Surgical History Ureteroscopy(stone removal) 01/15/2018 Hospitalization History No Hospitalization history informati on Goals Section No Information Health Concerns No Information MEDICAL EQUIPMENT No Information MENTAL STATUS No Information FUNCTIONAL STATUS No Information ASSESSMENTS No Information PLAN OF TREATMENT Medication Medication Name Sig Start Date Stop Date Losartan Potassium 100 MG 1 tablet Orally Once a day Lasix 20 MG 1 tablet Orally as needed Once a day Hydrochlorothiazide 12.5 MG 1 tab Oral Daily for 90 days Next Appt Details Provider Name:Humaira Thomas, 2022-01-05 08:15:00 AM, [address] [facility], , [place], [address], Provider Name:Carol Doty, 2022-06-20 03:45:00 PM, [address] [facility], , [place], [address], Insurance Providers Payer Name Payer Address Payer Phone Insured Name Patient Relati onship to Insured Coverage Start Date Coverage End Date [facility] [address] [facility] [phone] ELIZABETH STYLES self
--- OUTSIDE RECORDS SUMMARY | 2021-09-18 07:52 | CCD ---
Author Author [facility] Organization [facility] Address Unknown Phone Unavailable Care Team Providers Care Bar Finish Operator Name Role Phone Humaira Thomas Unavailable PROBLEMS Type Condition ICD9-CM Code [id number] Code Onset Dates Condition S tatus W/U Status Risk SNOMED Code Notes Problem Mild intermittent asthma without complication J45. 20 Active confirmed 420764637 Problem Essential hypertension I10 Active confirmed 44754389 Problem Gastroesophageal reflux disease K21.9 Active confi rmed 115946449 Problem Screening for skin cancer Z12.83 Active confirmed 941316065 Problem Liver nodule K76.89 Active confirmed 5292672 07 Problem Thoracic aortic aneurysm without rupture I71.2 Active confirmed 56743042 Problem Seborrheic keratoses L82.1 Active confirmed 545333765 Problem Lentigines L81.4 Active confirmed 939330290 Problem Melanocytic nevus of skin D22.9 Active confirmed 636566265 ALLERGIES No Known Allergies ENCOUNTERS from 1972 to 2021-06-23 Encounter Location Date Provider Diagnosis [address] [phone] [place] [address] Jun, Humaira Thomas Liver nodule K76.89 IMMUNIZATIONS Vaccine Route Administration Date Status TDAP [...] Education Language: Question Answer Notes Languages spoken: Burkinan Confucianism: Question Answer Notes Confucianism 33 None Drug and Alcohol Question Answer [...] dissolve Sublingual Once a day Dec, Not-Taking Losartan Potassium 100 MG 1 tablet Orally Once a day Active Lasix 20 MG 1 tablet Orally as needed Once a day PRN Active Pantoprazole Sodium 40 MG 1 tablet Orally Once a day as needed PRN Dec, Active Hydrochlorothiazide 12.5 MG 1 tab Oral Daily Active PROCEDURES No Information RESULTS No Results REASON FOR VISIT Liver nodule MEDICAL (GENERAL) HISTORY Type Description Date Medical History Seasonal/allergy induced asthma Medical History External hemorrhoids intermittent Medical History History of nephrolithiasis Medical History Hypertension Medical History GERD Medical History Thoracic aortic aneurysm 3.9 cm on Echo - [facility] Medical History Echo showed normal LV, EF 60% in 06/2018 Medical History Nuclear stress test normal 06/[address] [facility] Medical History ASCVD risk 0.4% in 02/2019 [...] Notes Treatment Notes Treatm ent Clinical Notes Jun, Liver nodule (ICD-10 - K76.89) PLAN OF TREATMENT Future Test Test Name Order Date CT ABD w/o FOLL by with Contrast [id number] Next Appt Details Provider Name:Humaira Kathy Thomas, 2022-01-05 08:15:00 AM, [address] [facility], , [place], [address], Provider Name:Carol Doty, 2022-06-20 03:45:00 PM, [address] [facility], , [place], [address], Insurance Providers Payer Name Payer Address Payer Phone Insured Name Patient Relati onship to Insured Coverage Start Date Coverage End Date [facility] [address] [facility] [phone] ELIZABETH STYLES self
--- OUTSIDE RECORDS SUMMARY | 2021-09-18 07:52 | CCD ---
Author Author [facility] Organization [facility] Address Unknown Phone Unavailable Care Team Providers Care Stone Chimney Mason Name Role Phone Humaira Thomas Unavailable PROBLEMS Type Condition ICD9-CM Code OSA68-ND Code Onset Dates Condition S tatus W/U Status Risk SNOMED Code Notes Problem Mild intermittent asthma without complication J45. 20 Active confirmed 065980963 Problem Essential hypertension I10 Active confirmed 19022775 Problem Gastroesophageal reflux disease K21.9 Active confi rmed 411666383 Problem Screening for skin cancer Z12.83 Active confirmed 107374369 Problem Liver nodule K76.89 Active confirmed 5284404 07 Problem Thoracic aortic aneurysm without rupture I71.2 Active confirmed 39102846 Problem Seborrheic keratoses L82.1 Active confirmed 403333934 Problem Lentigines L81.4 Active confirmed 727598563 Problem Melanocytic nevus of skin D22.9 Active confirmed 633457693 ALLERGIES No Known Allergies ENCOUNTERS from 1972 to 2021-07-06 Encounter Location Date Provider Diagnosis [address] [phone] [place] [address] Jun, Humaira Thomas IMMUNIZATIONS Vaccine Route Administration Date [...] Education Language: Question Answer Notes Languages spoken: Sao Tomean Zoroastrian: Question Answer Notes Zoroastrian 33 None Drug and Alcohol Question Answer [...] Information RESULTS No Results REASON FOR VISIT CT scan results MEDICAL (GENERAL) HISTORY Type Description Date Medical History Seasonal/allergy induced asthma Medical History External hemorrhoids intermittent Medical History History of nephrolithiasis Medical History Hypertension Medical History GERD Medical History Thoracic aortic aneurysm 3.9 cm on Echo - [facility] Medical History Echo showed normal LV, EF 60% in 06/2018 Medical History Nuclear stress test normal 06/2018 at [facility] Medical History ASCVD risk 0.4% in [...] Information ASSESSMENTS No Information PLAN OF TREATMENT Next Appt Details Provider Name:Humaira Thomas, 2022-01-05 08:15:00 AM, [address] [facility], , [place], [address], Provider Name:Carol Doty, 2022-06-20 03:45:00 PM, [address] [facility], , [place], [address], Insurance Providers Payer Name Payer Address Payer Phone Insured Name Patient Relati onship to Insured Coverage Start Date Coverage End Date [employer] [address] [facility] [phone] ELIZABETH STYLES self
--- OUTSIDE RECORDS SUMMARY | 2021-09-18 07:52 | CCD ---
Author Author [facility] Organization [facility] Address Unknown Phone Unavailable Care Team Providers Care Casing Cleaner Name Role Phone Humaira Thomas Unavailable PROBLEMS Type Condition ICD9-CM Code LPF33-IE Code Onset Dates Condition S tatus W/U Status Risk SNOMED Code Notes Problem Mild intermittent asthma without complication J45. 20 Active confirmed 697463990 Problem Essential hypertension I10 Active confirmed 96776839 Problem Gastroesophageal reflux disease K21.9 Active confi rmed 561271232 Problem Screening for skin cancer Z12.83 Active confirmed 832332877 Problem Liver nodule K76.89 Active confirmed 3024416 07 Problem Thoracic aortic aneurysm without rupture I71.2 Active confirmed 44086373 Problem Seborrheic keratoses L82.1 Active confirmed 243927071 Problem Lentigines L81.4 Active confirmed 636924844 Problem Melanocytic nevus of skin D22.9 Active confirmed 318694452 ALLERGIES No Known Allergies ENCOUNTERS from 1972 to 2021-08-17 Encounter Location Date Provider Diagnosis [address] [phone] [place] [address] Aug, Humaira Thomas Palpitations R00.2 IMMUNIZATIONS Vaccine Route Administration Date Status TDAP [...] Education Language: Question Answer Notes Languages spoken: Hungarian Buddhist: Question Answer Notes Buddhist 33 None Drug and Alcohol Question Answer [...] Information RESULTS No Results REASON FOR VISIT issues w/ BP MEDICAL (GENERAL) HISTORY Type Description Date Medical History Seasonal/allergy induced asthma Medical History External hemorrhoids intermittent Medical History History of nephrolithiasis Medical History Hypertension Medical History GERD Medical History Thoracic aortic aneurysm 3.9 cm on Echo - [facility] Medical History Echo showed normal LV, EF 60% in 06/2018 Medical History Nuclear stress test normal 06/2018 at [facility] Medical History ASCVD risk [...] Treatment Notes Treatm ent Clinical Notes Aug, Palpitations (ICD-10 - R00.2) PLAN OF TREATMENT Medication Medication Name Sig Start Date Stop Date Hydrochlorothiazide 12.5 MG 1 tab Oral Daily for 7 day(s) Future Test Test Name Order Date TSH [id number] Next Appt Details Provider Name:Humaira Thomas, 2021-08-25 08:45:00 AM, [address] [facility], , [place], [address], Provider Name:Humaira Chavez Julestam, 2022-01-05 08:15:00 AM, [address] [facility], , [place], [address], Provider Name:Carol Doty, 2022-06-20 03:45:00 PM, [address] [facility], , [place], [address], Insurance Providers Payer Name Payer Address Payer Phone Insured Name Patient Relati onship to Insured Coverage Start Date Coverage End Date [facility] [address] [facility] [phone] ELIZABETH STYLES self
--- OUTSIDE RECORDS SUMMARY | 2021-09-18 07:52 | CCD ---
Author Author [facility] Organization [facility] Address Unknown Phone Unavailable Care Team Providers Care Measurement Coordinator Name Role Phone Humaira Thomas Unavailable PROBLEMS Type Condition ICD9-CM Code PYJ10-GA Code Onset Dates Condition S tatus W/U Status Risk SNOMED Code Notes Problem Mild intermittent asthma without complication J45. 20 Active confirmed 155888528 Problem Essential hypertension I10 Active confirmed 05775413 Problem Gastroesophageal reflux disease K21.9 Active confi rmed 485339028 Problem Screening for skin cancer Z12.83 Active confirmed 378316534 Problem Liver nodule K76.89 Active confirmed 0976113 07 Problem Thoracic aortic aneurysm without rupture I71.2 Active confirmed 60100038 Problem Seborrheic keratoses L82.1 Active confirmed 518111284 Problem Lentigines L81.4 Active confirmed 707742495 Problem Melanocytic nevus of skin D22.9 Active confirmed 794043526 ALLERGIES No Known Allergies ENCOUNTERS from 1972 to 2021-07-21 Encounter Location Date Provider Diagnosis [address] [phone] [place] [address] Jul, Humaira Thomas Essential hypertension I10 IMMUNIZATIONS Vaccine [...] Education Language: Question Answer Notes Languages spoken: Indian Druze: Question Answer Notes Druze 33 None Drug and Alcohol Question Answer [...] Information RESULTS No Results REASON FOR VISIT New Refill Request MEDICAL (GENERAL) HISTORY Type Description Date Medical History Seasonal/allergy induced asthma Medical History External hemorrhoids intermittent Medical History History of nephrolithiasis Medical History Hypertension Medical History GERD Medical History Thoracic aortic aneurysm 3.9 cm on Echo - [facility] Medical History Echo showed normal LV, EF 60% in 06/2018 Medical History Nuclear stress test normal 06/2018 at [facility] Medical History ASCVD risk 0.4% in 02/2019 [...] Treatment Notes Treatm ent Clinical Notes Jul, Essential hypertension (ICD-10 - I10) PLAN OF TREATMENT Medication Medication Name Sig Start Date Stop Date Hydrochlorothiazide 12.5 MG 1 tab Oral Daily for 7 day(s) Next Appt Details Provider Name:Humaira Thomas, 2022-01-05 08:15:00 AM, [address] [facility], , [place], [address], Provider Name:Carol Wilcoxant, 2022-06-20 03:45:00 PM, [address] [facility], , [place], [place], [facility], Insurance Providers Payer Name Payer Address Payer Phone Insured Name Patient Relati onship to Insured Coverage Start Date Coverage End Date [facility] [address] [facility] [address] ELIZABETH STYLES self
--- OUTSIDE RECORDS SUMMARY | 2021-09-18 07:52 | CCD ---
Author Author [facility] Organization [facility] Address Unknown Phone Unavailable Care Team Providers Care Special Delivery Clerk Name Role Phone Humaira Thomas Unavailable PROBLEMS Type Condition ICD9-CM Code LCE78-HK Code Onset Dates Condition S tatus W/U Status Risk SNOMED Code Notes Problem Mild intermittent asthma without complication J45. 20 Active confirmed 364259598 Problem Essential hypertension I10 Active confirmed 07153743 Problem Gastroesophageal reflux disease K21.9 Active confi rmed 466421642 Problem Screening for skin cancer Z12.83 Active confirmed 343752725 Problem Liver nodule K76.89 Active confirmed 4039561 07 Problem Thoracic aortic aneurysm without rupture I71.2 Active confirmed 04415393 Problem Seborrheic keratoses L82.1 Active confirmed 007871762 Problem Lentigines L81.4 Active confirmed 836439117 Problem Melanocytic nevus of skin D22.9 Active confirmed 069661226 ALLERGIES No Known Allergies ENCOUNTERS from 1972 to 2021-07-21 Encounter Location Date Provider Diagnosis [address] [phone] [place] [address] Jul, Humaira Thomas IMMUNIZATIONS Vaccine Route Administration Date [...] Education Language: Question Answer Notes Languages spoken: Afghan Restorationism: Question Answer Notes Restorationism 33 None Drug and Alcohol Question Answer [...] Information RESULTS No Results REASON FOR VISIT call back MEDICAL (GENERAL) HISTORY Type Description Date Medical History Seasonal/allergy induced asthma Medical History External hemorrhoids intermittent Medical History History of nephrolithiasis Medical History Hypertension Medical History GERD Medical History Thoracic aortic aneurysm 3.9 cm on Echo - [facility] Medical History Echo showed normal LV, EF 60% in 06/2018 Medical History Nuclear stress test normal 06/2018 at [facility] Medical History ASCVD risk 0.4% in 02/2019 [...] Provider Name:Humaira Thomas, 2022-01-05 08:15:00 AM, [address] [facility], [place], [address], Provider Name:Carol Doty, 2022-06-20 03:45:00 PM, [address] [facility], , [place], [address], Insurance Providers Payer Name Payer Address Payer Phone Insured Name Patient Relati onship to Insured Coverage Start Date Coverage End Date [employer] [address] [facility] [phone] [phone] ELIZABETH STYLES self
--- OUTSIDE RECORDS SUMMARY | 2021-09-18 07:52 | CCD ---
Author Author [facility] Organization [facility] Address Unknown Phone Unavailable Care Team Providers Care Head Still Operator Name Role Phone Carol Doty Unavailable PROBLEMS Type Condition ICD9-CM Code AJV66-CE Code Onset Dates Condition S tatus W/U Status Risk SNOMED Code Notes Problem Mild intermittent asthma without complication J45. 20 Active confirmed 198723201 Problem Essential hypertension I10 Active confirmed 45375117 Problem Gastroesophageal reflux disease K21.9 Active confi rmed 284914846 Problem Lentigines L81.4 Active confirmed 589731757 Problem Liver cyst K76.89 Active confirmed 26921064 Problem Thoracic aortic aneurysm without rupture I71.2 Active confirmed 30110423 Problem Seborrheic keratoses L82.1 Active confirmed 241560819 Problem Melanocytic nevus of skin D22.9 Active confirmed 386213067 Problem Screening for skin cancer Z12.83 Active confirmed 214471882 ALLERGIES No Known Allergies ENCOUNTERS from 1972 to 2021-06-19 Encounter Location Date Provider Diagnosis [facility] D[facility] [address] [place] [address] [place] [address] May, Carol Doty Melanocytic nevus of skin D2 2.9 ; Screening for skin cancer Z12.83 ; Seborrheic keratoses L82.1 and Lentigines L81.4 IMMUNIZATIONS Vaccine Route Administration Date Status TDAP [...] Education Language: Question Answer Notes Languages spoken: Maltese Yarsani: Question Answer Notes Yarsani 33 None Drug and Alcohol Question Answer [...] FOR REFERRAL No Information VITAL SIGNS Weight 245.6 lbs May, Height 65 in May, BMI 40.87 kg/m2 May, Blood pressure systolic 124 mm Hg May, Blood pressure diastolic 78 mm Hg May, MEDICATIONS Medication SIG (Take, Route, Frequency, Duration) [...] Information RESULTS No Results REASON FOR VISIT 6 month fbse MEDICAL (GENERAL) HISTORY Type Description Date Medical History Seasonal/allergy induced asthma Medical History External hemorrhoids intermittent Medical History History of nephrolithiasis Medical History Hypertension Medical History GERD Medical History Thoracic aortic aneurysm 3.9 cm on Echo - [facility] Medical History Echo showed normal LV, EF 60% in 06/2018 Medical History Nuclear stress test normal 06/2018 at [facility] Medical History ASCVD risk 0.4% in [...] Notes Treatment Notes Treatm ent Clinical Notes May, Melanocytic nevus of skin (ICD-10 - D22.9) Reminded to avoid the sun and tanning, use sun screens regularly when spending time [id number], and perform self-examinations monthly to watch for any change in the appearance of your moles. If you notice any changes in color, appearance, symptoms of moles, you should contact the office for an appointment to have change evaluated as soon as possible. May, Screening for skin cancer (ICD-10 - Z12.83) Patient counseled on signs and symptoms of skin cancer including ABCDE's of Melanoma. Patient counseled to wear sunscreen or use sun protective clothing when outdoors. Avoid peak hours of sun between 10-2. Patient instructed to call with any new or changing lesions. May, Seborrheic keratoses (ICD-10 - L82.1) Benign Lesion Counseling. The patient was extensively counseled regarding the benign nature of the lesion but that skin cancer may arise in this area just as it would anywhere on their skin. For that reason, return to clinic was recommended for any acute changes, itching, burning, or bleeding. The patient was educated that benign lesions are not a covered insurance benefit and treatment would be elective and cosmetic. They expressed understanding. May, Lentigines (ICD-10 - L81.4) Benign Lesion Counseling. The patient was extensively counseled regarding the benign nature of the lesion but that skin cancer may arise in this area just as it would anywhere on their skin. For that reason, return to clinic was recommended for any acute changes, itching, burning, or bleeding. The patient was educated that benign lesions are not a covered insurance benefit and treatment would be elective and cosmetic. They expressed understanding. PLAN OF TREATMENT Treatment Notes Assessment Notes Clinical Notes Melanocytic nevus of skin Reminded to av oid the sun and tanning, use sun screens regularly when spending time [id number], and perform self-examinations monthly to watch for any change in the appearance of your moles. If you notice any changes in color, appearance, symptoms of moles, you should contact the office for an appointment to have change evaluated as soon as possible. Screening for skin cancer Patient counse led on signs and symptoms of skin cancer including ABCDE's of Melanoma. Patient counseled to wear sunscreen or use sun protective clothing when outdoors. Avoid peak hours of sun between 10-2. Patient instructed to call with any new or changing lesions. Seborrheic keratoses Benign Lesion Couns elitaty. The patient was extensively counseled regarding the benign nature of the lesion but that skin cancer may arise in this area just as it would anywhere on their skin. For that reason, return to clinic was recommended for any acute changes, itching, burning, or bleeding. The patient was educated that benign lesions are not a covered insurance benefit and treatment would be elective and cosmetic. They expressed understanding. Lentigines Benign Lesion Counse sergio. The patient was extensively counseled regarding the benign nature of the lesion but that skin cancer may arise in this area just as it would anywhere on their skin. For that reason, return to clinic was recommended for any acute changes, itching, burning, or bleeding. The patient was educated that benign lesions are not a covered insurance benefit and treatment would be elective and cosmetic. They expressed understanding. Next Appt Details 1 Year Reason:FBSE Provider Name:Humaira Thomas, 2022-01-05 08:15:00 AM, [address] [facility] [phone], [place], [address] Provider Name:Carol Doty, 2022-06-20 03:45:00 PM, [address] [place] [address] , [place], [address], Follow Up:1 YearFBSE Insurance Providers Payer Name Payer Address Payer Phone Insured Name Patient Relati onship to Insured Coverage Start Date Coverage End Date [facility] [address] [facility] [phone] [phone] ELIZABETH STYLES
--- OUTSIDE RECORDS SUMMARY | 2021-09-18 07:53 | CCD ---
Author Author [facility] Organization [facility] Address Unknown Phone Unavailable Care Team Providers Care Sparker And Patcher Name Role Phone Rekha GLEASON MD Unavailable Unavailable Rekha GLEASON MD Unavailable Unavailable Rekha GLEASON MD Unavailable Unavailable Rekha GLEASON MD Unavailable Unavailable Rekha GLEASON MD Unavailable Unavailable Rekha GLEASON MD Unavailable Unavailable Rekha GLEASON MD Unavailable Unavailable Rekha GLEASON MD Unavailable Unavailable Rekha GLEASON MD Unavailable Unavailable Rekha GLEASON MD Unavailable Unavailable Rekha GLEASON MD Unavailable Unavailable Rekha GLEASON MD Unavailable Unavailable Rekha GLEASON MD Unavailable Unavailable Rekha GLEASON MD Unavailable Unavailable Rekha GLEASON MD Unavailable Unavailable Rekha GLEASON MD Unavailable Unavailable Rekha GLEASON MD Unavailable Unavailable Rekha GLEASON MD Unavailable Unavailable Rekha GLEASON MD Unavailable Unavailable Rekha GLEASON MD Unavailable Unavailable Rekha GLEASON MD Unavailable Unavailable Rekha GLEASON MD Unavailable Unavailable Rekha GLEASON MD Unavailable Unavailable Rekha GLEASON MD Unavailable Unavailable eRkha GLEASON MD Unavailable Unavailable Rekha GLEASON MD Unavailable Unavailable Rekha GLEASON MD Unavailable Unavailable Rekha GLEASON MD Unavailable Unavailable Rekha GLEASON MD Unavailable Unavailable Rekha GLEASON MD Unavailable Unavailable Rekha GLEASON MD Unavailable Unavailable Rekha GLEASON MD Unavailable Unavailable Rekha GLEASON MD Unavailable Unavailable Rekha GLEASON MD Unavailable Unavailable Rekha GLEASON MD Unavailable Unavailable Rekha GLEASON MD Unavailable Unavailable Rekha GLEASON MD Unavailable Unavailable Rekha GLEASON MD Unavailable Unavailable Rekha GLEASON MD Unavailable Unavailable Rekha GLEASON MD Unavailable Unavailable Rekha GLEASON MD Unavailable Unavailable Rekha GLEASON MD Unavailable Unavailable Rekha GLEASON MD Unavailable Unavailable Rekha GLEASON MD Unavailable Unavailable Rekha GLEASON MD Unavailable Unavailable Rekha GLEASON MD Unavailable Unavailable Rekha GLEASON MD Unavailable Unavailable Rekha GLEASON MD Unavailable Unavailable Rekha GLEASON MD Unavailable Unavailable Rekha GLEASON MD Unavailable Unavailable Rekha GLEASON MD Unavailable Unavailable Rekha GLEASON MD Unavailable Unavailable Rekha GLEASON MD Unavailable Unavailable Rekha GLEASON MD Unavailable Unavailable Rekha GLEASON MD Unavailable Unavailable Rekha GLEASON MD Unavailable Unavailable Rekha GLEASON MD Unavailable Unavailable Rekha GLEASON MD Unavailable Unavailable Rekha GLEASON MD Unavailable Unavailable Rekha GLEASON MD Unavailable Unavailable Rekha GLEASON MD Unavailable Unavailable Rekha GLEASON MD Unavailable Unavailable Rekha GLEASON MD Unavailable Unavailable Rekha GLEASON MD Unavailable Unavailable Rekha GLEASON MD Unavailable Unavailable Rekha GLEASON MD Unavailable Unavailable Rekha GLEASON MD Unavailable Unavailable Rekha GLEASON MD Unavailable Unavailable Rekha GLEASON MD Unavailable Unavailable Rekha GLEASON MD Unavailable Unavailable Rekha GLEASON MD Unavailable Unavailable Rekha GLEASON MD Unavailable Unavailable Rekha GLEASON MD Unavailable Unavailable Rekha GLEASON MD Unavailable Unavailable Rekha GLEASON MD Unavailable Unavailable Rekha GLEASON MD Unavailable Unavailable Rekha GLEASON MD Unavailable Unavailable Rekha GLEASON MD Unavailable Unavailable Rekha GLEASON MD Unavailable Unavailable Rekha GLEASON MD Unavailable Unavailable Rekha GLEASON MD Unavailable Unavailable Rekha GLEASON MD Unavailable Unavailable LETTIERE, A MARGRET PA Unavailable Unavailable LETTIERE, A MARGRET PA Unavailable Unavailable LETTIERE, A MARGRET PA Unavailable Unavailable LETTIERE, A MARGRET PA Unavailable Unavailable LETTIERE, A MARGRET PA Unavailable Unavailable LETTIERE, A MARGRET PA Unavailable Unavailable LETTIERE, A MARGRET PA Unavailable Unavailable LETTIERE, A MARGRET PA Unavailable Unavailable LETTIERE, A MARGRET PA Unavailable Unavailable LETTIERE, A MARGRET PA Unavailable Unavailable LETTIERE, A MARGRET PA Unavailable Unavailable LETTIERE, A MARGRET PA Unavailable Unavailable LETTIERE, A MARGRET PA Unavailable Unavailable LETTIERE, A MARGRET PA Unavailable Unavailable LETTIERE, A MARGRET PA Unavailable Unavailable LETTIERE, A MARGRET PA Unavailable Unavailable LETTIERE, A MARGRET PA Unavailable Unavailable LETTIERE, A MARGRET PA Unavailable Unavailable LETTIERE, A MARGRET PA Unavailable Unavailable LETTIERE, A MARGRET PA Unavailable Unavailable LETTIERE, A MARGRET PA Unavailable Unavailable LETTIERE, A MARGRET PA Unavailable Unavailable LETTIERE, A MARGRET PA Unavailable Unavailable LETTIERE, A MARGRET PA Unavailable Unavailable LETTIERE, A MARGRET PA Unavailable Unavailable LETTIERE, A MARGRET PA Unavailable Unavailable LETTIERE, A MARGRET PA Unavailable Unavailable LETTIERE, A MARGRET PA Unavailable Unavailable LETTIERE, A MARGRET PA Unavailable Unavailable LETTIERE, A MARGRET PA Unavailable Unavailable LETTIERE, A MARGRET PA Unavailable Unavailable Kathy Thomas MD Unavailable Unavailable Kathy Thomas MD Unavailable Unavailable Kathy Thomas MD Unavailable Unavailable Kathy Thomas MD Unavailable Unavailable Kathy Thomas MD Unavailable Unavailable Kathy Thomas MD Unavailable Unavailable Kathy Thomas MD Unavailable Unavailable Kathy Thomas MD Unavailable Unavailable Skipton, E Humaira MD Unavailable Unavailable Skipton, E Humaira MD Unavailable Unavailable Skipton, E Humaira MD Unavailable Unavailable Skipton, E Humaira MD Unavailable Unavailable Skipton, E Humaira MD Unavailable Unavailable Skipton, E Humaira MD Unavailable Unavailable Skipton, E Humaira MD Unavailable Unavailable Skipton, E Humaira MD Unavailable Unavailable Skipton, E Humaira MD Unavailable Unavailable Skipton, E Humaira MD Unavailable Unavailable Skipton, E Humaira MD Unavailable Unavailable Skipton, E Humaira MD Unavailable Unavailable Skipton, E Humaira MD Unavailable Unavailable Skipton, E Humaira MD Unavailable Unavailable Skipton, E Humaira MD Unavailable Unavailable Skipton, E Humaira MD Unavailable Unavailable Skipton, E Humaira MD Unavailable Unavailable Skipton, E Humaira MD Unavailable Unavailable Skipton, E Humaira MD Unavailable Unavailable Skipton, E Humaira MD Unavailable Unavailable Skipton, E Humaira MD Unavailable Unavailable Skipton, E Humaira MD Unavailable Unavailable Skipton, E Humaira MD Unavailable Unavailable Skipton, E Humaira MD Unavailable Unavailable Skipton, E Humaira MD Unavailable Unavailable Skipton, E Humaira MD Unavailable Unavailable Skipton, E Humaira MD Unavailable Unavailable Skipton, E Humaira MD Unavailable Unavailable Skipton, E Humaira MD Unavailable Unavailable Skipton, E Humaira MD Unavailable Unavailable Skipton, E Humaira MD Unavailable Unavailable Skipton, E Humaira MD Unavailable Unavailable Skipton, E Humaira MD Unavailable Unavailable Skipton, E Humaira MD Unavailable Unavailable Skipton, E Humaira MD Unavailable Unavailable Skipton, E Humaira MD Unavailable Unavailable Skipton, E Humaira MD Unavailable Unavailable Skipton, E Humaira MD Unavailable Unavailable Skipton, E Humaira MD Unavailable Unavailable Skipton, E Humaira MD Unavailable Unavailable Skipton, E Humaira MD Unavailable Unavailable Skipton, E Humaira MD Unavailable Unavailable Skipton, E Humaira MD Unavailable Unavailable Skipton, E Humaira MD Unavailable Unavailable Skipton, E Humaira MD Unavailable Unavailable Skipton, E Humaira MD Unavailable Unavailable Skipton, E Humaira MD Unavailable Unavailable Skipton, E Humaira MD Unavailable Unavailable Skipton, E Humaira MD Unavailable Unavailable Skipton, E Humaira MD Unavailable Unavailable Skipton, E Humaira MD Unavailable Unavailable Skipton, E Humaira MD Unavailable Unavailable Re-disclosure Warning The records that you are about to access may contain information from federally-assisted alcohol or drug abuse programs. If such information is present, then the following federally mandated warning applies: This information has been disclosed to you from records protected by federal confidentiality rules (42 CFR part 2). The federal rules prohibit you from making any further disclosure of this information unless further disclosure is expressly permitted by the written consent of the person to whom it pertains or as otherwise permitted by 42 CFR part 2. A general authorization for the release of medical or other information is NOT sufficient for this purpose. The Federal rules restrict any use of the information to criminally investigate or prosecute any alcohol or drug abuse patient.The records that you are about to access may contain highly sensitive health information, the redisclosure of which is protected by Article 27-F of the [facility] Public Health law. If you continue you may have access to information: Regarding HIV / AIDS; Provided by facilities licensed or operated by the [facility] Office of Mental Health; or Provided by the [facility] Office for People With Developmental Disabilities. If such information is present, then the following [facility] mandated warning applies: This information has been disclosed to you from confidential records which are protected by state law. State law prohibits you from making any further disclosure of this information without the specific written consent of the person to whom it pertains, or as otherwise permitted by law. Any unauthorized further disclosure in violation of state law may result in a fine or longterm sentence or both. A general authorization for the release of medical or other information is NOT sufficient authorization for further disc losure. Encounters Encounter Providers Location Date Indications Data Source(s ) Unknown [address] [facility] [place] [address] 08/29/2021 12:00:00 AM EDT eCW1 ([facility]) Outpatient [address] [facility] [address] 08/25/2021 12:00:00 AM EDT eCW1 ([facility]) Unknown [address] [facility] [place] [address] 08/25/2021 12:00:00 AM EDT eCW1 ([facility]) Outpatient Attender: Humaira Thomas MDConsultant: Humaira morales MD 08/20/2021 10:53:00 AM EDT - 08/20/2021 11:53:00 AM EDT [facility] Unknown [address] [facility] [address] 08/16/2021 12:00:00 AM EDT eCW1 ([facility]) Unknown [address] [facility] [address] 07/31/2021 12:00:00 AM EDT eCW1 ([facility]) Unknown [address] [facility] [place] [address] 07/21/2021 12:00:00 AM EDT eCW1 ([facility]) Unknown [address] [facility] [address] 07/20/2021 12:00:00 AM EDT eCW1 ([facility]) Unknown [address] [facility] [address] 07/06/2021 12:00:00 AM EDT eCW1 ([facility]) Unknown [address] [facility] [place] [address] 06/23/2021 12:00:00 AM EDT eCW1 ([facility]) Unknown [address] [facility] [place] [address] 06/09/2021 12:00:00 AM EDT eCW1 ([facility]) Outpatient [address] [facility] [address] 06/07/2021 12:00:00 AM EDT eCW1 ([facility]) Outpatient [address] [facility] [place] [address] 06/02/2021 12:00:00 AM EDT eCW1 ([facility]) Unknown [address] [facility] [place] [address] 01/29/2021 12:00:00 AM EDT eCW1 ([facility]) Unknown [address] [facility] [address] 01/29/2021 12:00:00 AM EDT eCW1 ([facility]) Unknown [address] [facility] [place] [address] 01/29/2021 12:00:00 AM EDT eCW1 ([facility]) Outpatient Attender: EPI GLEASON MD [facility] 01/25/2021 01:00:00 PM EDT MEDENT ([facility] Unknown [address] [facility] [address] 12/01/2020 12:00:00 AM EST eCW1 ([facility]) Unknown [address] [facility] [place] [address] 11/28/2020 12:00:00 AM EST eCW1 ([facility]) Outpatient Attender: Humaira Thomas MDConsultant: Humaira morales MD 11/26/2020 10:23:00 AM EST - 11/26/2020 11:23:00 AM EST [facility] Outpatient [address] [facility] [address] 11/23/2020 12:00:00 AM EST [facility]CW1 [facility] [place] [address] [facility] [address] 11/22/2020 12:00:00 AM EST [facility] Outpatient Attender: MARGRET pagan 11/16/2020 03:40:00 PM EST [facility] ([facility]) Unknown [address] [facility] [address] 11/11/2020 12:00:00 AM EST eCW1 ([facility]) Unknown [address] [facility] [place] [address] 11/10/2020 12:00:00 AM EST eCW1 ([facility]) Unknown [address] [facility] [address] 11/10/2020 12:00:00 AM EST eCW1 ([facility]) Outpatient [address] [facility] [place] [address] 09/21/2020 12:00:00 AM EST eCW1 ([facility]) Unknown [address] [facility] [address] 09/20/2020 12:00:00 AM EST eCW1 ([facility]) Unknown [address] [facility] [address] 09/20/2020 12:00:00 AM EST eCW1 ([facility]) Outpatient [address] [facility] [address] 09/02/2020 12:00:00 AM EDT eCW1 ([facility]) Immunizations Vaccine Date Status Description Data Source(s) COVID-19 VACCINE Pfizer 03/18/2021 12:00:00 AM EDT completed [facility] Vaccine Series Complete: YESThis Data wa s Submitted to [facility] Via [employer]. COVID-19 VACCINE Pfizer 02/25/2021 12:00:00 AM EDT completed [facility] Vaccine Series Complete: NOThis Data was Submitted to [facility] Via [employer]. This CVX code allows reporting of a vacc ination when formulation is unknown (for example, when recording a Influenza vaccination when noted on a vaccination card) 01/25/2021 01:02:00 PM EDT completed MEDEN T ([facility]) Medications Medication Brand Name Start Date Product Form Dose Route Admi nistrative Instructions Pharmacy Instructions Status Indications Reaction Description Data Source(s) Furosemide 20 MG Oral Tablet Furosemide 01/25/2021 12:00:00 AM EDT ORAL active MEDENT ([facility] Amoxicillin 875 MG / Clavulanate 125 MG Oral Tablet Amoxicillin-Pot Clavulanate 875-125 MG Amoxicillin-Pot Clavulanate 875-125 MG 11/23/2020 12:00:00 AM ES T 1.0 {tablet} active Amoxicillin-Pot Cla vulanate 875-125 MG eCW1 ([facility]) Amoxicillin 875 MG / Clavulanate 125 MG Oral Tablet Amoxicillin-Pot Clavulanate 875-125 MG Amoxicillin-Pot Clavulanate 875-125 MG 11/23/2020 12:00:00 AM ES T 1.0 {tablet} active Amoxicillin-Pot Cla vulanate 875-125 MG eCW1 ([facility]) Amoxicillin 875 MG / Clavulanate 125 MG Oral Tablet Amoxicillin-Pot Clavulanate 875-125 MG Amoxicillin-Pot Clavulanate 875-125 MG 11/23/2020 12:00:00 AM ES T 1.0 {tablet} active Amoxicillin-Pot Cla vulanate 875-125 MG eCW1 ([facility]) Amoxicillin 875 MG / Clavulanate 125 MG Oral Tablet Amoxicillin-Pot Clavulanate 875-125 MG Amoxicillin-Pot Clavulanate 875-125 MG 11/23/2020 12:00:00 AM ES T 1.0 {tablet} active Amoxicillin-Pot Cla vulanate 875-125 MG eCW1 ([facility]) 875-125 mg 11/23/2020 12:00:00 AM EST tablet 20 TAKE ONE TABLET BY MOUTH EVERY 12 HOURS FOR 10 DAYS TAKE ONE TABLET BY MOUTH EVERY 12 HOURS FOR 10 DAYS SOLD: 11/23/2020 Julianne Gill Amoxicillin 875 MG / Clavulanate 125 MG Oral Tablet Amoxicillin-Pot Clavulanate 875-125 MG Amoxicillin-Pot Clavulanate 875-125 MG 11/23/2020 12:00:00 AM ES T 1.0 {tablet} active Amoxicillin-Pot Cla vulanate 875-125 MG eCW1 ([facility]) Amoxicillin 875 MG / Clavulanate 125 MG Oral Tablet Amoxicillin-Pot Clavulanate 875-125 MG Amoxicillin-Pot Clavulanate 875-125 MG 11/23/2020 12:00:00 AM ES T 1.0 {tablet} active Amoxicillin-Pot Cla vulanate 875-125 MG eCW1 ([facility]) Hydrochlorothiazide 12.5 MG Oral Tablet HYDROCHLOROTHIAZIDE 09/20/2020 12:00:00 AM EST tablet 30 TAKE ONE TABLET BY MOUTH NURYS DAY TAKE ONE TABLET BY MOUTH EVERY DAY SOLD: 09/20/2020 [facility] Physical Therapy evaluate and treat UNK 09/02/2020 12:00:00 AM EDT active Physical Therapy evaluate and tr eat eCW1 ([facility]) Physical Therapy evaluate and treat UNK 09/02/2020 12:00:00 AM EDT active Physical Therapy evaluate and tr eat eCW1 ([facility]) Physical Therapy evaluate and treat UNK 09/02/2020 12:00:00 AM EDT active Physical Therapy evaluate and tr eat eCW1 ([facility]) Physical Therapy evaluate and treat UNK 09/02/2020 12:00:00 AM EDT suspended Physical Therapy evaluate and tr eat eCW1 ([facility]) Physical Therapy evaluate and treat UNK 09/02/2020 12:00:00 AM EDT active Physical Therapy evaluate and tr eat eCW1 ([facility]) Physical Therapy evaluate and treat UNK 09/02/2020 12:00:00 AM EDT suspended Physical Therapy evaluate and tr eat eCW1 ([facility]) Physical Therapy evaluate and treat UNK 09/02/2020 12:00:00 AM EDT suspended Physical Therapy evaluate and tr eat eCW1 ([facility]) Physical Therapy evaluate and treat UNK 09/02/2020 12:00:00 AM EDT suspended Physical Therapy evaluate and tr eat eCW1 ([facility]) Physical Therapy evaluate and treat UNK 09/02/2020 12:00:00 AM EDT active Physical Therapy evaluate and tr eat eCW1 ([facility]) Physical Therapy evaluate and treat UNK 09/02/2020 12:00:00 AM EDT suspended Physical Therapy evaluate and tr eat eCW1 ([facility]) Physical Therapy evaluate and treat UNK 09/02/2020 12:00:00 AM EDT suspended Physical Therapy evaluate and tr eat eCW1 ([facility]) Physical Therapy evaluate and treat UNK 09/02/2020 12:00:00 AM EDT active Physical Therapy evaluate and tr eat eCW1 ([facility]) Physical Therapy evaluate and treat UNK 09/02/2020 12:00:00 AM EDT active Physical Therapy evaluate and tr eat eCW1 ([facility]) Physical Therapy evaluate and treat UNK 09/02/2020 12:00:00 AM EDT active Physical Therapy evaluate and tr eat eCW1 ([facility]) Hydrochlorothiazide 12.5 MG Oral Tablet HYDROCHLOROTHIAZIDE 08/03/2020 12:00:00 AM EDT tablet 30 TAKE ONE TABLET BY MOUTH NURYS DAY TAKE ONE TABLET BY MOUTH EVERY DAY SOLD: 08/03/2020 Julianne Montague s Insurance Providers Payer name Policy type / Coverage type Policy ID Covered democrat ID Covered democrat's relationship to king Policy [place] Plan Information [employer] [place]/307 [id number] SP [id number] [place] [place]/307 [id number] SP [id number] [place] [place]/307 [id number] SP [id number] Blue Cross Blue Shield P [id number] SELF [id number] [facility] Healthcare F [id number] SELF [id number] [facility] [id number] SP [id number] ANSI-Commercial [id number] ANSI-Commercial [id number] ANSI-Commercial [id number] [facility] [id number] SP [id number] Blue Cross Blue Shield P [id number] SELF [id number] [employer] BCBS P [id number] S [id number] [employer] BCBS P [id number] S [id number] SELF PAY UNAVAILABLE UNAVAILA BLE BLUE CROSS BLUE SHIELD-O/P [id number] 18 [id number] [facility] CARE O [id number] S [id number] [facility] MEDICAID HMO -O/P [id number] 18 [id number] [facility] O [id number] S [id number] ANSI-Commercial [id number] ANSI-Commercial [id number] ANSI-Commercial [id number] ANSI-Commercial [id number] Problems, Conditions, and Diagnoses Code Display Name Description Problem Type Effective Dates Data Source(s) R002 Palpitations Palpitations Diagnosis 08/20/2021 10:53:00 A M EDT [facility] E876 Hypokalemia Hypokalemia Diagnosis 08/20/2021 10:53:00 AM EDT [facility] Z0000 Encounter for general adult medical exam ination without abnormal findings Encounter for general adult medical examination without abnormal findings Diagnosis 11/26/2020 10:23:00 AM [facility] [id number] Encounter for screening for lipoid disor ders Encounter for screening for lipoid disorders Diagnosis 11/26/2020 10:23:00 AM [facility] D519 Vitamin B12 deficiency anemia, unspecifi ed Vitamin B12 deficiency anemia, unspecified Diagnosis 11/26/2020 10:23:00 AM [facility] R319 Hematuria, unspecified Hematuria, unspecified Diagnosi s 11/26/2020 10:23:00 AM [facility] I10 Essential (primary) hypertension Essential (primary) h ypertension Diagnosis 11/26/2020 10:23:00 AM [facility] K76.89 [id number] Liver nodule Problem 06/23/2021 12:00:00 AM EDT eCW1 ([facility]) K76.89 [id number] Liver cyst Problem 06/09/2021 12:00:00 AM ED T eCW1 ([facility]) D22.9 [id number] Melanocytic nevus of skin Problem 06/07/2021 12:00:00 AM EDT eCW1 ([facility]) L81.4 [id number] Lentigines Problem 06/07/2021 12:00:00 AM ED T eCW1 ([facility]) L82.1 [id number] Seborrheic keratoses Problem 06/07/2021 12:0 0:00 AM EDT eCW1 ([facility]) Z12.83 [id number] Screening for skin cancer Problem 06/07/2021 12:00:00 AM EDT eCW1 ([facility]) Surgeries/Procedures Procedure Description Date Indications Data Source(s) ECG ROUTINE ECG W/LEAST 12 LDS W/I&R 08/25/2021 12:00: 00 AM EDT eCW1 ([facility]) Electrocardiogram Complete 01/25/2021 12:00:00 AM EDT MEDENT ([facility]) Results ID Date Data Source [id number] 08/20/2021 12:37:00 PM EDT [facility] Name Value Range Interpretation Code Description Data Hazel rce(s) Supporting Document(s) BASIC METABOLIC PANEL [facility] BASIC METABOLIC PANEL Sodium [Moles/volume] in Serum or Plasma 138 mEq/L 134 - 153 [facility] Potassium [Moles/volume] in Serum or Plasma 3.9 mEq/L 3.6 - 5.0 [facility] Chloride [Moles/volume] in Serum or Plasma 104 mEq/L 98 - 107 [facility] Carbon dioxide, total [Moles/volume] in Serum or Plasma 23 MEQ/L 22 - 30 [facility] Glucose [Mass/volume] in Serum or Plasma 96 MG/DL 70 - 99 [facility] BUN 14 MG/DL 7 - 21 [facility] Creatinine [Mass/volume] in Serum or Plasma 0.6 MG/DL 0.7 - 1.5 L [facility] BUN/CREAT 23 8 - [facility] Cal[facility] [Mass/volume] in Serum or Plasma 8.7 MG/DL 8.4 - 10.2 [facility] Anion gap 3 in Serum or Plasma 11.0 mmol/L 8.0 - 16.0 [facility] AGE 51 yrs [facility] AFR AMER GFR >60 mL/min [facility] Ho spital NON-AA GFR >60 mL/min [facility] Male GFR Inter prentation 20-49 yrs >60 mL/min Normal 50-59 yrs >56 mL/min Normal 60-69 yrs >49 mL/min Normal 70-79yrs >42 mL/min Normal 80 and above >35 mL/min Normal Female GFR Interpretation 20-39 yrs >60 mL/min Normal 40-49 yrs >58 mL/min Normal 50-59 yrs >51 mL/min Normal 60-69 yrs >45 mL/min Normal 70-79 yrs >39 mL/min Normal 80 and above >32 mL/min Normal ID Date Data Source [id number] 08/20/2021 12:35:00 PM EDT [facility] Name Value Range Interpretation Code Description Data Hazel rce(s) Supporting Document(s) Thyrotropin [Units/volume] in Serum or Plasma by Detec tion limit <= 0.05 mIU/L 1.00 uIU/mL 0.47 - 5.01 [facility] ID Date Data Source [id number] 11/26/2020 12:42:00 PM [facility] Name Value Range Interpretation Code Description Data Hazel rce(s) Supporting Document(s) Cobalamin (Vitamin B12) [Mass/volume] in Serum or Plasma 270 PG/ML 232 - 1245 [facility] ID Date Data Source [id number] 11/26/2020 12:29:00 PM [facility] Name Value Range Interpretation Code Description Data Hazel rce(s) Supporting Document(s) BASIC METABOLIC PANEL [facility] BASIC METABOLIC PANEL Sodium [Moles/volume] in Serum or Plasma 137 mEq/L 134 - 153 [facility] Potassium [Moles/volume] in Serum or Plasma 4.1 mEq/L 3.6 - 5.0 [facility] Chloride [Moles/volume] in Serum or Plasma 101 mEq/L 98 - 107 [facility] Carbon dioxide, total [Moles/volume] in Serum or Plasma 25 MEQ/L 22 - 30 [facility] Glucose [Mass/volume] in Serum or Plasma 90 MG/DL 70 - 99 [facility] BUN 14 MG/DL 7 - 21 [facility] al Creatinine [Mass/volume] in Serum or Plasma 0.6 MG/DL 0.7 - 1.5 L [facility] BUN/CREAT 23 8 - 27 [facility] Calcium [Mass/volume] in Serum or Plasma 9.1 MG/DL 8.4 - 10.2 [facility] Anion gap 3 in Serum or Plasma 11.0 mmol/L 8.0 - 16.0 [facility] AGE 50 yrs [facility] AFR AMER GFR >60 mL/min [facility] Ho spital NON-AA GFR >60 mL/min [facility] Male GFR Inter prentation 20-49 yrs >60 mL/min Normal 50-59 yrs >56 mL/min Normal 60-69 yrs >49 mL/min Normal 70-79yrs >42 mL/min Normal 80 and above >35 mL/min Normal Female GFR Interpretation 20-39 yrs >60 mL/min Normal 40-49 yrs >58 mL/min Normal 50-59 yrs >51 mL/min Normal 60-69 yrs >45 mL/min Normal 70-79 yrs >39 mL/min Normal 80 and above >32 mL/min Normal ID Date Data Source [id number] 11/26/2020 12:29:00 PM EST [facility] Name Value Range Interpretation Code Description Data Hazel rce(s) Supporting Document(s) CVE PANEL [facility] LIPID PANEL Cholesterol [Mass/volume] in Serum or Plasma 152 MG/DL 131 - 200 [facility] Deprecated Triglyceride [Mass/volume] in Serum or Plasma 144 MG/DL 3 5 - 160 [facility] HDL 59 MG/DL 29 - 86 [facility] Cholesterol in LDL [Mass/volume] in Serum or Plasma by Direc t assay 86 mg/dL 65 - 175 [facility] Cholesterol.total/Cholesterol in HDL [Mass Ratio] in Serum o r Plasma 2.6 3.2 - 4.4 L [facility] LDL/HDL 1.46 1.47 - 3.22 L [facility] ital CVE RISK CHOL/HDL LDL/HDLMEN: 1/2 AVERAGE 3.43 1.00 AVERAGE 4.97 3.55 2X AVERAGE 9.55 6.25 3X AVERAGE 23.99 7.99WOMEN: 1/2 AVERAGE 3.27 1.47 AVERAGE 4.44 3.22 2X AVERAGE 7.05 5.03 3X AVERAGE 11.04 6.14 ID Date Data Source [id number] 11/26/2020 11:12:00 AM EST [facility] Name Value Range Interpretation Code Description Data Hazel rce(s) Supporting Document(s) CBC NO DIFF [facility] ital COMPLETE BLOOD COUNT Leukocytes [#/volume] in Blood by Automated count 8.6 10^3/uL 4.2 - 1 1.0 [facility] Erythrocytes [#/volume] in Blood by Automated count 3.64 10^6/uL 4. 20 - 5.40 L [facility] Hemoglobin [Mass/volume] in Blood 12.1 g/dL 12.0 - 16.0 [facility] Hematocrit [Volume Fraction] of Blood by Automated count 35.5 % 3 7.0 - 47.0 L [facility] Erythrocyte mean corpuscular volume [Entitic volume] by Auto mated count 97.5 fL 81.0 - 101 [facility] Erythrocyte mean corpuscular hemoglobin [Entitic mass] by Automated count 33.2 pg 27.0 - 34.0 [facility] Erythrocyte mean corpuscular hemoglobin concentration [Mass/volume] by Automated count 34.1 g/dL 31.0 - 36.0 [facility] Erythrocyte distribution width [Ratio] by Automated count 12.3 % 11.5 - 14.5 [facility] Platelets [#/volume] in Blood by Automated count 233 10^3/uL 150 - 45 0 [facility] Platelet mean volume [Entitic volume] in Blood by Automated count 9.9 fL 7.4 - 10.4 [facility] ID Date Data Source [id number] 11/16/2020 12:00:00 AM EST [facility] Name Value Range Interpretation Code Description Data Hazel rce(s) Supporting Document(s) SARS coronavirus 2 Ag Negative [facility] This lab was ordered by [facility] and reported by [facility]. Procedure Social History Code Duration Value Status Description Data Source(s ) Smoking 08/25/2021 12:00:00 AM EDT Never Smoker completed Never S moker eCW1 ([facility]) Smoking 08/25/2021 12:00:00 AM EDT Never Smoker completed Never S moker eCW1 ([facility]) Smoking 08/25/2021 12:00:00 AM EDT Never Smoker completed Never S moker eCW1 ([facility]) Smoking 06/07/2021 12:00:00 AM EDT Never Smoker completed Never S moker eCW1 ([facility]) Smoking 06/07/2021 12:00:00 AM EDT Never Smoker completed Never S moker eCW1 ([facility]) Smoking 06/07/2021 12:00:00 AM EDT Never Smoker completed Never S moker eCW1 ([facility]) Smoking 06/07/2021 12:00:00 AM EDT Never Smoker completed Never S moker eCW1 ([facility]) Smoking 06/07/2021 12:00:00 AM EDT Never Smoker completed Never S moker eCW1 ([facility]) Smoking 06/07/2021 12:00:00 AM EDT Never Smoker completed Never S moker eCW1 ([facility]) Smoking 06/07/2021 12:00:00 AM EDT Never Smoker completed Never S moker eCW1 ([facility]) Smoking 06/07/2021 12:00:00 AM EDT Never Smoker completed Never S moker eCW1 ([facility]) Smoking 06/02/2021 12:00:00 AM EDT Never Smoker completed Never S moker eCW1 ([facility]) Smoking 01/25/2021 12:00:00 AM EDT Patient has never smoked co mpleted Patient has never smoked MEDENT ([facility] Smoking 11/23/2020 12:00:00 AM EST Never Smoker completed Never S moker eCW1 ([facility]) Smoking 11/23/2020 12:00:00 AM EST Never Smoker completed Never S moker eCW1 ([facility]) Smoking 11/23/2020 12:00:00 AM EST Never Smoker completed Never S moker eCW1 ([facility]) Smoking 11/23/2020 12:00:00 AM EST Never Smoker completed Never S moker eCW1 ([facility]) Smoking 11/23/2020 12:00:00 AM EST Never Smoker completed Never S moker eCW1 ([facility]) Smoking 11/23/2020 12:00:00 AM EST Never Smoker completed Never S moker eCW1 ([facility]) Smoking 11/16/2020 12:00:00 AM EST Patient has never smoked co mpleted Patient has never smoked MEDENT ([facility]) Smoking 09/21/2020 12:00:00 AM EST Never Smoker completed Never S moker eCW1 ([facility]) Smoking 09/21/2020 12:00:00 AM EST Never Smoker completed Never S moker eCW1 ([facility]) Smoking 09/21/2020 12:00:00 AM EST Never Smoker completed Never S moker eCW1 ([facility]) Smoking 09/21/2020 12:00:00 AM EST Never Smoker completed Never S moker eCW1 ([facility]) Smoking 09/21/2020 12:00:00 AM EST Never Smoker completed Never S moker eCW1 ([facility]) Smoking 09/02/2020 12:00:00 AM EDT Never Smoker completed Never S moker eCW1 ([facility]) Smoking 09/02/2020 12:00:00 AM EDT Never Smoker completed Never S moker eCW1 ([facility]) Smoking 09/02/2020 12:00:00 AM EDT Never Smoker completed Never S moker eCW1 ([facility]) Vital Signs ID Date Data Source UNK Name Value Range Interpretation Code Description Data Source(s) Body weight 245.8 [lb_av] 245.8 [lb_av] [facility]) Body height 65 [in_i] 65 [in_i] eCW1 ([facility]) Body mass index (BMI) [Ratio] 40.90 kg/m2 40.90 kg/m2 eCW1 ([facility]) Heart rate 109 /min 109 /min eCW1 ([facility]) Respiratory rate 18 /min 18 /min eCW1 ([facility]) Body temperature 96.6 [degF] 96.6 [degF] eCW1 ( [facility]) Systolic blood pressure 116 mm[Hg] 116 mm[Hg] e CW1 ([facility]) Diastolic blood pressure 78 mm[Hg] 78 mm[Hg] eCW1 ([facility]) Body weight 245.6 [lb_av] 245.6 [lb_av] eCW1 ([facility]) Body height 65 [in_i] 65 [in_i] eCW1 ([facility]) Body mass index (BMI) [Ratio] 40.87 kg/m2 40.87 kg/m2 eCW1 ([facility]) Systolic blood pressure 124 mm[Hg] 124 mm[Hg] e CW1 ([facility]) Diastolic blood pressure 78 mm[Hg] 78 mm[Hg] eCW1 ([facility]) Body weight 246 [lb_av] 246 [lb_av] eCW1 ([facility]) Body height 65 [in_i] 65 [in_i] eCW1 ([facility]) Body mass index (BMI) [Ratio] 40.93 kg/m2 40.93 kg/m2 eCW1 ([facility]) Heart rate 102 /min 102 /min eCW1 ([facility]) Respiratory rate 18 /min 18 /min eCW1 ([facility]) Body temperature 97.8 [degF] 97.8 [degF] eCW1 ( [facility]) Systolic blood pressure 128 mm[Hg] 128 mm[Hg] e CW1 ([facility]) Diastolic blood pressure 86 mm[Hg] 86 mm[Hg] eCW1 ([facility]) Systolic blood pressure 118 mm[Hg] 118 mm[Hg] M EDENT ([facility]) Diastolic blood pressure 82 mm[Hg] 82 mm[Hg] MEDENT ([facility]) Heart rate 93 /min 93 /min MEDENT ([facility] Body weight 244.00 [lb_av] 244.00 [lb_av] MEDEN T ([facility]) Body height 66 [in_i] 66 [in_i] MEDENT ([facility] 5'6" Body mass index (BMI) [Ratio] 39.4 kg/m2 39.4 k g/m2 MEDENT ([facility]) // Lipids done 11/26/20 Oxygen saturation in Arterial blood by Pulse oximetry 98 % 98 % MEDENT ([facility]) Body surface area Derived from formula 2.18 m2 2.18 m2 MEDENT ([facility]) Body height 65 [in_i] 65 [in_i] eCW1 ([facility]) Body mass index (BMI) [Ratio] 40.77 kg/m2 40.77 kg/m2 eCW1 ([facility]) Body weight 245 [lb_av] 245 [lb_av] eCW1 ([facility]) Heart rate 94 /min 94 /min eCW1 ([facility]) Respiratory rate 18 /min 18 /min eCW1 ([facility]) Body temperature 96.7 [degF] 96.7 [degF] eCW1 ( [facility]) Systolic blood pressure 124 mm[Hg] 124 mm[Hg] e CW1 ([facility]) Diastolic blood pressure 72 mm[Hg] 72 mm[Hg] eCW1 ([facility]) Respiratory rate 15 /min 15 /min MEDENT ( [facility], [facility]) Systolic blood pressure 124 mm[Hg] 124 mm[Hg] M EDENT ([facility], [facility]) Diastolic blood pressure 86 mm[Hg] 86 mm[Hg] MEDENT ([facility]) Oxygen saturation in Arterial blood by Pulse oximetry 98 % 98 % MEDENT ([facility], [facility]) Heart rate 76 /min 76 /min MEDENT ([facility], [facility]) Body temperature 96.6 [degF] 96.6 [degF] MEDENT ([facility], [facility]) Body weight 235.00 [lb_av] 235.00 [lb_av] MEDEN T ([facility], [facility]) Body height 66 [in_i] 66 [in_i] MEDENT ([facility]) 5'6" Body mass index (BMI) [Ratio] 37.9 kg/m2 37.9 k g/m[facility]) Body weight 244 [lb_av] 244 [lb_av] eCW1 ([facility]) Body height 65 [in_i] 65 [in_i] eCW1 ([facility]) Body mass index (BMI) [Ratio] 40.60 kg/m2 40.60 kg/m2 eCW1 ([facility]) Systolic blood pressure 128 mm[Hg] 128 mm[Hg] e CW1 ([facility]) Diastolic blood pressure 80 mm[Hg] 80 mm[Hg] eCW1 ([facility]) Body weight 242 [lb_av] 242 [lb_av] eCW1 ([facility]) Body height 65 [in_i] 65 [in_i] eCW1 ([facility]) Body mass index (BMI) [Ratio] 40.27 kg/m2 40.27 kg/m2 eCW1 ([facility]) Heart rate 82 /min 82 /min eCW1 ([facility]) Respiratory rate 18 /min 18 /min eCW1 ([facility]) Body temperature 97.5 [degF] 97.5 [degF] eCW1 ( [facility]) Systolic blood pressure 122 mm[Hg] 122 mm[Hg] e CW1 ([facility]) Diastolic blood pressure 64 mm[Hg] 64 mm[Hg] eCW1 ([facility]) Patient Treatment Plan of Care Planned Activity Planned Date Details Description Data Source (s) Amoxicillin 875 MG / Clavulanate 125 MG Oral Tablet 11/23/19 21 12:00:00 AM EST eCW1 ([facility]) Amoxicillin 875 MG / Clavulanate 125 MG Oral Tablet 11/23/19 21 12:00:00 AM EST eCW1 ([facility]) Amoxicillin 875 MG / Clavulanate 125 MG Oral Tablet 11/23/19 21 12:00:00 AM EST eCW1 ([facility]) Amoxicillin 875 MG / Clavulanate 125 MG Oral Tablet 11/23/19 21 12:00:00 AM EST eCW1 ([facility]) Amoxicillin 875 MG / Clavulanate 125 MG Oral Tablet 11/23/19 21 12:00:00 AM EST eCW1 ([facility]) Amoxicillin 875 MG / Clavulanate 125 MG Oral Tablet 11/23/19 21 12:00:00 AM EST eCW1 ([facility]) Physical Therapy evaluate and treat 09/02/2020 12:00:00 AM EDT eCW1 ([facility]) Physical Therapy evaluate and treat 09/02/2020 12:00:00 AM EDT eCW1 ([facility]) Physical Therapy evaluate and treat 09/02/2020 12:00:00 AM EDT eCW1 ([facility])
[2021-09-18] MEDS ORDERED: FURO20TA2 (08:01)
[2021-09-18] MEDS: METOPROLOL 5 MG/5 ML VIAL IV SCH ×3 (08:30→08:52)
[2021-09-18 08:42] LABS: BASO % 0.4 % (0.0-1.0); EOS # 0.2 10^3/uL (0.0-0.5); EOS % 1.8 % (0.0-3.0); HEMATOCRIT 37.2 % (36.0-47.0); HEMOGLOBIN 12.2 g/dl (12.0-15.5); LYMPH # 1.8 10^3/uL (1.5-5.0); LYMPH % 19.9 % (24.0-44.0); MEAN CORPUSCULAR HEMOGLOBIN 32.5 pg (27.0-33.0); MEAN CORPUSCULAR HGB CONC 32.8 g/dl (32.0-36.5); MEAN CORPUSCULAR VOLUME 99.2 fl (80.0-96.0); MONO # 0.3 10^3/uL (0.0-0.8); MONO % 3.4 % (2.0-8.0); NEUTROPHILS # 6.7 10^3/uL (1.5-8.5); NEUTROPHILS % 74.1 % (36.0-66.0); PLATELET COUNT, AUTOMATED 280 10^3/uL (150-450); RED BLOOD COUNT 3.75 10^6/uL (4.00-5.40)
[2021-09-18 09:13] LABS: AMPHETAMINES LEVEL URINE NEGATIVE (NEGATIVE); BARBITURATES URINE NEGATIVE (NEGATIVE); BENZODIAZEPINES URINE NEGATIVE (NEGATIVE); CANNABINOIDS URINE NEGATIVE (NEGATIVE); COCAINE METABOLITE URINE NEGATIVE (NEGATIVE); METHADONE URINE NEGATIVE (NEGATIVE); OPIATES URINE NEGATIVE (NEGATIVE); PHENCYCLIDINE URINE NEGATIVE (NEGATIVE)
[2021-09-18 09:15] LABS: ERYTHROCYTE SEDIMENTATION RATE 57 mm/hr (0-20)
[2021-09-18 09:17] LABS: ALBUMIN 3.4 GM/DL (3.2-5.2); ALT/SGPT 26 U/L (12-78); BILIRUBIN,DIRECT 0.1 MG/DL (0.0-0.2); BILIRUBIN,TOTAL 0.6 MG/DL (0.2-1.0); BLOOD UREA NITROGEN 15 MG/DL (7-18); C REACTIVE PROTEIN QUANTITATIV 0.63 MG/DL (0.00-0.30); CALCIUM LEVEL 8.7 MG/DL (8.5-10.1); CARBON DIOXIDE LEVEL 27 MEQ/L (21-32); CHLORIDE LEVEL 110 MEQ/L (98-107); CK-MB VALUE MASS < 1.0 NG/ML (<3.6); CPK CREATINE PHOSPHOKINASE 66 U/L (26-192); CREATININE FOR GFR 0.73 MG/DL (0.55-1.30); ETHYL ALCOHOL (ETHANOL) < 0.003 % (0.000-0.010); GLOMERULAR FILTRATION RATE > 60.0 (>58); GLUCOSE, FASTING 108 MG/DL (70-100); LIPASE 142 U/L (73-393); MAGNESIUM LEVEL 2.1 MG/DL (1.8-2.4); MB/CK RELATIVE INDEX 1.51 (< OR =4); NT-PRO BNP 158 PG/ML (<125); POTASSIUM SERUM 3.7 MEQ/L (3.5-5.1); SODIUM LEVEL 142 MEQ/L (136-145); TOTAL PROTEIN 7.2 GM/DL (6.4-8.2); TROPONIN I < 0.02 NG/ML (< 0.10)
[2021-09-18 09:18] LABS: INR 0.96; PROTHROMBIN TIME 13.2 SECONDS (12.7-14.5)
[2021-09-18 09:19] LABS: PARTIAL THROMBOPLASTIN TIME 26.1 SECONDS (25.9-37.0)
--- NOTE | 2021-09-18 09:24 | REP ---
INDICATION: CHEST PAIN. COMPARISON: 08/28/2021, 01/09/2018 PA lateral TECHNIQUE: AP portable seated FINDINGS: The lungs are well inflated. CP angles are sharply defined with no effusion or acute infiltrate. There is no pneumothorax. The heart is normal size for AP portable technique. No vascular redistribution or edema. The aorta is normal. There is no widening of mediastinum. Airway intact. Bones unremarkable. No free air under the diaphragm. IMPRESSION: 1. No acute cardiopulmonary change. <Electronically signed by Lambert Jimenez > 09/18/21 [id number]
[2021-09-18] MEDS ORDERED: METOPROLOL TART 50 MG TAB PO ONE (09:30)
[2021-09-18 09:35] VITALS: BP 113/70
--- OUTSIDE RECORDS SUMMARY | 2021-09-18 09:48 | CCD ---
Author Author [facility] Organization [facility] Address Unknown Phone Unavailable Care Team Providers Care Cna Caregiver Name Role Phone Rekha GLEASON MD Unavailable [...] is protected by Article 27-F of the [facility] Public Health law. If you continue you may have access to information: Regarding HIV / AIDS; Provided by facilities licensed or operated by the [facility] Office of Mental Health; or Provided by the [facility] Office for People With Developmental Disabilities. If such information is present, then the following [facility] mandated warning applies: This information has been [...] law may result in a fine or half-way sentence or both. A general authorization for the release of medical or other information is NOT sufficient authorization for further disc losure. Encounters Encounter Providers Location Date Indications Data Source(s ) Unknown [address] [facility] [place] [address] 08/29/2021 12:00:00 AM EDT eCW1 ([facility]) Outpatient [address] [facility] [place] [address] 08/25/2021 12:00:00 AM EDT eCW1 ([facility]) Unknown [address] [facility] [place] [address] 08/25/2021 12:00:00 AM EDT eCW1 ([facility]) Outpatient Attender: Humaira Thomas MDConsultant: Humaira morales MD 08/20/2021 10:53:00 AM EDT - 08/20/2021 11:53:00 AM EDT [facility] [place] [address] [facility] [address] 08/16/2021 12:00:00 AM EDT eCW1 ([facility]) [place] [address] [facility] [address] 07/31/2021 12:00:00 AM EDT eCW1 ([facility]) [place] [address] [facility] [address] 07/21/2021 12:00:00 AM EDT eCW1 ([facility]) [place] [address] [facility] [address] 07/20/2021 12:00:00 AM EDT eCW1 ([facility]) [place] [address] [facility] [address] 07/06/2021 12:00:00 AM EDT eCW1 ([facility]) [place] [address] [facility] [address] 06/23/2021 12:00:00 AM EDT eCW1 ([facility]) [place] [address] [facility] [address] 06/09/2021 12:00:00 AM EDT eCW1 ([facility]) [place]patient [address] [facility] [address] 06/07/2021 12:00:00 AM EDT eCW1 ([facility]) [place]patient [address] [facility] [address] 06/02/2021 12:00:00 AM EDT eCW1 ([facility]) [place] [address] [facility] [address] 01/29/2021 12:00:00 AM EDT eCW1 ([facility]) [place] [address] [facility] [address] 01/29/2021 12:00:00 AM EDT eCW1 ([facility]) [place] [address] [facility] [address] 01/29/2021 12:00:00 AM EDT eCW1 ([facility]) Outpatient Attender: EPI GLEASON [facility] 01/25/2021 01:00:00 PM EDT MEDENT ([facility] [place] [address] [facility] [address] 12/01/2020 12:00:00 AM EST eCW1 ([facility]) [place] [address] [facility] [address] 11/28/2020 12:00:00 AM EST eCW1 ([facility]) Outpatient Attender: Humaira Thomas MDConsultant: Humaira morales MD 11/26/2020 10:23:00 AM EST - 11/26/2020 11:23:00 AM EST [facility] [place]patient [address] [facility] [address] 11/23/2020 12:00:00 AM EST [facility] [place] [address] [facility] [address] 11/22/2020 12:00:00 AM EST [facility] Outpatient Attender: MARGRET pagan 11/16/2020 03:40:00 PM EST [facility] ([facility]) [place] [address] [facility] [address] 11/11/2020 12:00:00 AM EST eCW1 ([facility]) [place] [address] [facility] [address] 11/10/2020 12:00:00 AM EST eCW1 ([facility]) [place] [address] [facility] [address] 11/10/2020 12:00:00 AM EST eCW1 ([facility]) Outpatient [address] [facility] [place] [address] 09/21/2020 12:00:00 AM EST eCW1 ([facility]) [place] [address] [facility] [address] 09/20/2020 12:00:00 AM EST eCW1 ([facility]) [place] [address] [facility] [address] 09/20/2020 12:00:00 AM EST eCW1 ([facility]) [place] [address] [facility] [address] 09/02/2020 12:00:00 AM EDT eCW1 ([facility]) Immunizations Vaccine Date Status Description Data Source(s) COVID-19 VACCINE Pfizer 03/18/2021 12:00:00 AM EDT completed [facility] Vaccine Series Complete: YESThis Data wa s Submitted to [facility]. COVID-19 VACCINE Pfizer 02/25/2021 12:00:00 AM EDT completed [facility] Vaccine Series Complete: NOThis Data was Submitted to [facility]. This CVX code allows reporting of a vacc ination when formulation is unknown (for example, when recording a Influenza vaccination when noted on a vaccination card) 01/25/2021 01:02:00 PM EDT completed MEDEN T ([facility] Medications Medication Brand Name Start Date Product Form Dose Route Admi nistrative Instructions Pharmacy Instructions Status Indications Reaction Description Data Source(s) Furosemide 20 MG Oral Tablet Furosemide 01/25/2021 12:00:00 AM EDT ORAL active MEDENT ([facility] Amoxicillin 875 MG / Clavulanate 125 MG Oral Tablet Amoxicillin-Pot Clavulanate 875-125 MG Amoxicillin-Pot Clavulanate 875-125 MG 11/23/2020 12:00:00 AM ES T 1.0 {tablet} active Amoxicillin-Pot Cla vulanate 875-125 MG eCW1 ([facility]) Amoxicillin 875 MG / Clavulanate 125 MG Oral Tablet Amoxicillin-Pot Clavulanate 875-125 MG Amoxicillin-Pot Clavulanate 875-125 MG 11/23/2020 12:00:00 AM ES T 1.0 {tablet} active Amoxicillin-Pot Cla vulanate 875-125 MG eCW1 ([facility]) Amoxicillin 875 MG / Clavulanate 125 MG Oral Tablet Amoxicillin-Pot Clavulanate 875-125 MG Amoxicillin-Pot Clavulanate 875-125 MG 11/23/2020 12:00:00 AM ES T 1.0 {tablet} active Amoxicillin-Pot Cla vulanate 875-125 MG eCW1 ([facility]) Amoxicillin 875 MG / Clavulanate 125 MG Oral Tablet Amoxicillin-Pot Clavulanate 875-125 MG Amoxicillin-Pot Clavulanate 875-125 MG 11/23/2020 12:00:00 AM ES T 1.0 {tablet} active Amoxicillin-Pot Cla vulanate 875-125 MG eCW1 ([facility]) 875-125 mg 11/23/2020 12:00:00 AM EST tablet [...] active Amoxicillin-Pot Cla vulanate 875-125 MG eCW1 ([facility]) Amoxicillin 875 MG / Clavulanate 125 MG Oral Tablet Amoxicillin-Pot Clavulanate 875-125 MG Amoxicillin-Pot Clavulanate 875-125 MG 11/23/2020 12:00:00 AM ES T 1.0 {tablet} active Amoxicillin-Pot Cla vulanate 875-125 MG eCW1 ([facility]) Hydrochlorothiazide 12.5 MG Oral Tablet HYDROCHLOROTHIAZIDE 09/20/2020 12:00:00 AM EST tablet 30 TAKE ONE TABLET BY MOUTH NURYS DAY TAKE ONE TABLET BY MOUTH EVERY DAY SOLD: 09/20/2020 [facility] evaluate and treat UNK 09/02/2020 12:00:00 AM EDT active Physical Therapy evaluate and tr eat eCW1 ([facility]) Physical Therapy evaluate and treat UNK 09/02/2020 12:00:00 AM EDT active Physical Therapy evaluate and tr eat eCW1 ([facility]) Physical Therapy evaluate and treat UNK 09/02/2020 12:00:00 AM EDT active Physical Therapy evaluate and tr eat eCW1 ([facility]) Physical Therapy evaluate and treat UNK 09/02/2020 12:00:00 AM EDT suspended Physical Therapy evaluate and tr eat eCW1 ([facility]) Physical Therapy evaluate and treat UNK 09/02/2020 12:00:00 AM EDT active Physical Therapy evaluate and tr eat eCW1 ([facility]) Physical Therapy evaluate and treat UNK 09/02/2020 12:00:00 AM EDT suspended Physical Therapy evaluate and tr eat eCW1 ([facility]) Physical Therapy evaluate and treat UNK 09/02/2020 12:00:00 AM EDT suspended Physical Therapy evaluate and tr eat eCW1 ([facility]) Physical Therapy evaluate and treat UNK 09/02/2020 12:00:00 AM EDT suspended Physical Therapy evaluate and tr eat eCW1 ([facility]) Physical Therapy evaluate and treat UNK 09/02/2020 12:00:00 AM EDT active Physical Therapy evaluate and tr eat eCW1 ([facility]) Physical Therapy evaluate and treat UNK 09/02/2020 12:00:00 AM EDT suspended Physical Therapy evaluate and tr eat eCW1 ([facility]) Physical Therapy evaluate and treat UNK 09/02/2020 12:00:00 AM EDT suspended Physical Therapy evaluate and tr eat eCW1 ([facility]) Physical Therapy evaluate and treat UNK 09/02/2020 12:00:00 AM EDT active Physical Therapy evaluate and tr eat eCW1 ([facility]) Physical Therapy evaluate and treat UNK 09/02/2020 12:00:00 AM EDT active Physical Therapy evaluate and tr eat eCW1 ([facility]) Physical Therapy evaluate and treat UNK 09/02/2020 12:00:00 AM EDT active Physical Therapy evaluate and tr eat eCW1 ([facility]) Hydrochlorothiazide 12.5 MG Oral Tablet HYDROCHLOROTHIAZIDE 08/03/2020 12:00:00 AM EDT tablet 30 TAKE ONE TABLET BY MOUTH NURYS DAY TAKE ONE TABLET BY MOUTH EVERY DAY SOLD: 08/03/2020 [facility] Insurance Providers Payer name Policy type / Coverage type Policy ID Covered alliance party ID Covered alliance party's relationship to king Policy King Plan Information [employer]/307 [id number] SP [id number] [place] [place]/307 [id number] SP [id number] [place] [place] 302/307 [id number] SP [id number] Blue Cross Blue Shield P [id number] SELF [id number] [facility] Healthcare F [id number] SELF [id number] [facility] [id number] SP [id number] ANSI-Commercial [id number] ANSI-Commercial [id number] ANSI-Commercial [id number] [facility] [id number] SP [id number] Blue Cross Blue Shield P [id number] SELF [id number] [employer] BCBS P [id number] S [id number] [employer] BCBS P [id number] S VYS [id number] SELF PAY UNAVAILABLE UNAVAILA BLE BLUE CROSS BLUE SHIELD-O/P [id number] [id number] [facility] O [id number] S [id number] [facility] MEDICAID HMO -O/P [id number] [id number] [facility] O [id number] S [id number] ANSI-Commercial [id number] ANSI-[id number] [id number] ANSI-Commercial [id number] ANSI-Commercial [id number] Problems, Conditions, and Diagnoses Code Display Name Description Problem Type Effective Dates Data Source(s) R002 Palpitations Palpitations Diagnosis 08/20/2021 10:53:00 A M EDT [facility] E876 Hypokalemia Hypokalemia Diagnosis 08/20/2021 10:53:00 AM EDT [facility] Z0000 Encounter for general adult medical exam ination without abnormal findings Encounter for general adult medical examination without abnormal findings Diagnosis 11/26/2020 10:23:00 AM [facility] [id number] Encounter for screening for lipoid disor ders Encounter for screening for lipoid disorders Diagnosis 11/26/2020 10:23:00 AM [facility] D519 Vitamin B12 deficiency anemia, unspecifi ed Vitamin B12 deficiency anemia, unspecified Diagnosis 11/26/2020 10:23:00 AM [facility] R319 Hematuria, unspecified Hematuria, unspecified Diagnosi s 11/26/2020 10:23:00 AM [facility] I10 Essential (primary) hypertension Essential (primary) h ypertension Diagnosis 11/26/2020 10:23:00 AM [facility] K76.89 [id number] Liver nodule Problem 06/23/2021 12:00:00 AM EDT eCW1 ([facility]) K76.89 [id number] Liver cyst Problem 06/09/2021 12:00:00 AM ED T eCW1 ([facility]) D22.9 [id number] Melanocytic nevus of skin Problem 06/07/2021 12:00:00 AM EDT eCW1 ([facility]) L81.4 [id number] Lentigines Problem 06/07/2021 12:00:00 AM ED T eCW1 ([facility]) L82.1 [id number] Seborrheic keratoses Problem 06/07/2021 12:0 0:00 AM EDT eCW1 ([facility]) Z12.83 [id number] Screening for skin cancer Problem 06/07/2021 12:00:00 AM EDT eCW1 ([facility]) Surgeries/Procedures Procedure Description Date Indications Data Source(s) ECG ROUTINE ECG W/LEAST 12 LDS W/I&R 08/25/2021 12:00: 00 AM EDT eCW1 ([facility]) Electrocardiogram Complete 01/25/2021 12:00:00 AM EDT MEDENT ([facility] Results ID Date Data Source [id number] 08/20/2021 12:37:00 PM EDT [facility] Name Value Range Interpretation Code Description Data Hazel rce(s) Supporting Document(s) BASIC METABOLIC PANEL [facility] BASIC METABOLIC PANEL Sodium [Moles/volume] in Serum or Plasma 138 mEq/L 134 - 153 [facility] Potassium [Moles/volume] in Serum or Plasma 3.9 mEq/L 3.6 - 5.0 [facility] Chloride [Moles/volume] in Serum or Plasma 104 mEq/L 98 - 107 [facility] Carbon dioxide, total [Moles/volume] in Serum or Plasma 23 MEQ/L 22 - 30 [facility] Glucose [Mass/volume] in Serum or Plasma 96 MG/DL 70 - 99 [facility] BUN 14 MG/DL 7 - 21 [facility] Creatinine [Mass/volume] in Serum or Plasma 0.6 MG/DL 0.7 - 1.5 L [facility] B[facility]/CREAT 23 8 [facility] Cal[facility] [Mass/volume] in Serum or Plasma 8.7 MG/DL 8.4 - 10.2 [facility] Anion gap 3 in Serum or Plasma 11.0 mmol/L 8.0 - 16.0 [facility] AGE 51 yrs [facility] AFR AMER GFR >60 mL/min [facility] Ho spital NON-AA GFR >60 mL/min [facility] Hosp ital Male GFR Inter prentation 20-49 [...] >32 mL/min Normal ID Date Data Source [id number] 08/20/2021 12:35:00 PM EDT [facility] Name Value Range Interpretation Code Description Data Hazel rce(s) Supporting Document(s) Thyrotropin [Units/volume] in Serum or Plasma by Detec tion limit <= 0.05 mIU/L 1.00 uIU/mL 0.47 - 5.01 [facility] ID Date Data Source [id number] 11/26/2020 12:42:00 PM [facility] Name Value Range Interpretation Code Description Data Hazel rce(s) Supporting Document(s) Cobalamin (Vitamin B12) [Mass/volume] in Serum or Plasma 270 PG/ML 232 - 1245 [facility] ID Date Data Source [id number] 11/26/2020 12:29:00 PM [facility] Name Value Range Interpretation Code Description Data Hazel rce(s) Supporting Document(s) BASIC METABOLIC PANEL [facility] BASIC METABOLIC PANEL Sodium [Moles/volume] in Serum or Plasma 137 mEq/L 134 - 153 [facility] Potassium [Moles/volume] in Serum or Plasma 4.1 mEq/L 3.6 - 5.0 [facility] Chloride [Moles/volume] in Serum or Plasma 101 mEq/L 98 - 107 [facility] Carbon dioxide, total [Moles/volume] in Serum or Plasma 25 MEQ/L 22 - 30 [facility] Glucose [Mass/volume] in Serum or Plasma 90 MG/DL 70 - 99 [facility] BUN 14 MG/DL 7 - 21 [facility] Creatinine [Mass/volume] in Serum or Plasma 0.6 MG/DL 0.7 - 1.5 L [facility] BUN/CREAT 23 8 - 27 [facility] Calcium [Mass/volume] in Serum or Plasma 9.1 MG/DL 8.4 - 10.2 [facility] Anion gap 3 in Serum or Plasma 11.0 mmol/L 8.0 - 16.0 [facility] AGE 50 yrs [facility] AFR AMER GFR >60 mL/min [facility] Ho spital NON-AA GFR >60 mL/min [facility] Male GFR Inter prentation 20-49 yrs >60 [...] >32 mL/min Normal ID Date Data Source [id number] 11/26/2020 12:29:00 PM EST [facility] Name Value Range Interpretation Code Description Data Hazel rce(s) Supporting Document(s) CVE PANEL [facility] LIPID PANEL Cholesterol [Mass/volume] in Serum or Plasma 152 MG/DL 131 - 200 [facility] Deprecated Triglyceride [Mass/volume] in Serum or Plasma 144 MG/DL 3 5 - 160 [facility] HDL 59 MG/DL 29 - 86 [facility] Cholesterol in LDL [Mass/volume] in Serum or Plasma by Direc t assay 86 mg/dL 65 - 175 [facility] Cholesterol.total/Cholesterol in HDL [Mass Ratio] in Serum o r Plasma 2.6 3.2 - 4.4 L [facility] LDL/HDL 1.46 1.47 - 3.[address] [facility] ital CVE RISK CHOL/HDL LDL/HDLMEN: 1/2 AVERAGE 3.43 1.00 AVERAGE 4.97 3.55 2X AVERAGE 9.55 6.25 3X AVERAGE 23.99 7.99WOMEN: 1/2 AVERAGE 3.27 1.47 AVERAGE 4.44 3.22 2X AVERAGE 7.05 5.03 3X AVERAGE 11.04 6.14 ID Date Data Source [id number] 11/26/2020 11:12:00 AM EST [facility] Name Value Range Interpretation Code Description Data Hazel rce(s) Supporting Document(s) CBC NO DIFF [facility] ital COMPLETE BLOOD COUNT Leukocytes [#/volume] in Blood by Automated count 8.6 10^3/uL 4.2 - 1 1.0 [facility] Erythrocytes [#/volume] in Blood by Automated count 3.64 10^6/uL 4. 20 - 5.40 L [facility] Hemoglobin [Mass/volume] in Blood 12.1 g/dL 12.0 - 16.0 [facility] Hematocrit [Volume Fraction] of Blood by Automated count 35.5 % 3 7.0 - 47.0 L [facility] Erythrocyte mean corpuscular volume [Entitic volume] by Auto mated count 97.5 fL 81.0 - 101 [facility] Erythrocyte mean corpuscular hemoglobin [Entitic mass] by Automated count 33.2 pg 27.0 - 34.0 [facility] Erythrocyte mean corpuscular hemoglobin concentration [Mass/volume] by Automated count 34.1 g/dL 31.0 - 36.0 [facility] Erythrocyte distribution width [Ratio] by Automated count 12.3 % 11.5 - 14.5 [facility] Platelets [#/volume] in Blood by Automated count 233 10^3/uL 150 - 45 0 [facility] Platelet mean volume [Entitic volume] in Blood by Automated count 9.9 fL 7.4 - 10.4 [facility] ID Date Data Source [id number] 11/16/2020 12:00:00 AM EST [facility] Name Value Range Interpretation Code Description Data Hazel rce(s) Supporting Document(s) SARS coronavirus 2 Ag Negative [facility] This lab was ordered by [facility] and reported by [facility]. Procedure Social History Code Duration Value Status Description Data Source(s ) Smoking 08/25/2021 12:00:00 AM EDT Never Smoker completed Never S moker eCW1 ([facility]) Smoking 08/25/2021 12:00:00 AM EDT Never Smoker completed Never S moker eCW1 ([facility]) Smoking 08/25/2021 12:00:00 AM EDT Never Smoker completed Never S moker eCW1 ([facility]) Smoking 06/07/2021 12:00:00 AM EDT Never Smoker completed Never S moker eCW1 ([facility]) Smoking 06/07/2021 12:00:00 AM EDT Never Smoker completed Never S moker eCW1 ([facility]) Smoking 06/07/2021 12:00:00 AM EDT Never Smoker completed Never S moker eCW1 ([facility]) Smoking 06/07/2021 12:00:00 AM EDT Never Smoker completed Never S moker eCW1 ([facility]) Smoking 06/07/2021 12:00:00 AM EDT Never Smoker completed Never S moker eCW1 ([facility]) Smoking 06/07/2021 12:00:00 AM EDT Never Smoker completed Never S moker eCW1 ([facility]) Smoking 06/07/2021 12:00:00 AM EDT Never Smoker completed Never S moker eCW1 ([facility]) Smoking 06/07/2021 12:00:00 AM EDT Never Smoker completed Never S moker eCW1 ([facility]) Smoking 06/02/2021 12:00:00 AM EDT Never Smoker completed Never S moker eCW1 ([facility]) Smoking 01/25/2021 12:00:00 AM EDT Patient has never smoked co mpleted Patient has never smoked [facility] Smoking 11/23/2020 12:00:00 AM EST Never Smoker completed Never S moker eCW1 ([facility]) Smoking 11/23/2020 12:00:00 AM EST Never Smoker completed Never S moker eCW1 ([facility]) Smoking 11/23/2020 12:00:00 AM EST Never Smoker completed Never S moker eCW1 ([facility]) Smoking 11/23/2020 12:00:00 AM EST Never Smoker completed Never S moker eCW1 ([facility]) Smoking 11/23/2020 12:00:00 AM EST Never Smoker completed Never S moker eCW1 ([facility]) Smoking 11/23/2020 12:00:00 AM EST Never Smoker completed Never S moker eCW1 ([facility]) Smoking 11/16/2020 12:00:00 AM EST Patient has never smoked co mpleted Patient has never smoked MEDENT ([facility]) Smoking 09/21/2020 12:00:00 AM EST Never Smoker completed Never S moker eCW1 ([facility]) Smoking 09/21/2020 12:00:00 AM EST Never Smoker completed Never S moker eCW1 ([facility]) Smoking 09/21/2020 12:00:00 AM EST Never Smoker completed Never S moker eCW1 ([facility]) Smoking 09/21/2020 12:00:00 AM EST Never Smoker completed Never S moker eCW1 ([facility]) Smoking 09/21/2020 12:00:00 AM EST Never Smoker completed Never S moker eCW1 ([facility]) Smoking 09/02/2020 12:00:00 AM EDT Never Smoker completed Never S moker eCW1 ([facility]) Smoking 09/02/2020 12:00:00 AM EDT Never Smoker completed Never S moker eCW1 ([facility]) Smoking 09/02/2020 12:00:00 AM EDT Never Smoker completed Never S moker eCW1 ([facility]) Vital Signs ID Date Data Source UNK Name Value Range Interpretation Code Description Data Source(s) Body weight 245.8 [lb_av] 245.8 [lb_av] [facility]CW[facility] ([facility] Body height 65 [in_i] 65 [in_i] eCW1 ([facility]) Body mass index (BMI) [Ratio] 40.90 kg/m2 40.90 kg/m2 eCW1 ([facility]) Heart rate 109 /min 109 /min eCW1 ([facility]) Respiratory rate 18 /min 18 /min eCW1 ([facility]) Body temperature 96.6 [degF] 96.6 [degF] eCW1 ( [facility]) Systolic blood pressure 116 mm[Hg] 116 mm[Hg] e CW1 ([facility]) Diastolic blood pressure 78 mm[Hg] 78 mm[Hg] eCW1 ([facility]) Body weight 245.6 [lb_av] 245.6 [lb_av] eCW1 ([facility]) Body height 65 [in_i] 65 [in_i] eCW1 ([facility]) Body mass index (BMI) [Ratio] 40.87 kg/m2 40.87 kg/m2 eCW1 ([facility]) Systolic blood pressure 124 mm[Hg] 124 mm[Hg] e CW1 ([facility]) Diastolic blood pressure 78 mm[Hg] 78 mm[Hg] eCW1 ([facility]) Body weight 246 [lb_av] 246 [lb_av] eCW1 ([facility]) Body height 65 [in_i] 65 [in_i] eCW1 ([facility]) Body mass index (BMI) [Ratio] 40.93 kg/m2 40.93 kg/m2 eCW1 ([facility]) Heart rate 102 /min 102 /min eCW1 ([facility]) Respiratory rate 18 /min 18 /min eCW1 ([facility]) Body temperature 97.8 [degF] 97.8 [degF] eCW1 ( [facility]) Systolic blood pressure 128 mm[Hg] 128 mm[Hg] e CW1 ([facility]) Diastolic blood pressure 86 mm[Hg] 86 mm[Hg] eCW1 ([facility]) Systolic blood pressure 118 mm[Hg] 118 mm[Hg] M EDENT ([facility] Diastolic blood pressure 82 mm[Hg] 82 mm[Hg] MEDENT ([facility] Heart rate 93 /min 93 /min [facility] Body weight 244.00 [lb_av] 244.00 [lb_av] MEDEN T ([facility] Body height 66 [in_i] 66 [in_i] [facility]ENT [facility] 5'6" Body mass index (BMI) [Ratio] 39.4 kg/m2 39.4 k g/m2 [facility] ([facility]) // Lipids done 11/26/20 Oxygen saturation in Arterial blood by Pulse oximetry 98 % 98 % [facility] ([facility]) Body surface area Derived from formula 2.18 m2 2.18 m2 [facility] ([facility]) Body weight 245 [lb_av] 245 [lb_av] eCW1 ([facility]) Body height 65 [in_i] 65 [in_i] eCW1 ([facility]) Body mass index (BMI) [Ratio] 40.77 kg/m2 40.77 kg/m2 eCW1 ([facility]) Heart rate 94 /min 94 /min eCW1 ([facility]) Respiratory rate 18 /min 18 /min eCW1 ([facility]) Body temperature 96.7 [degF] 96.7 [degF] eCW1 ( [facility]) Systolic blood pressure 124 mm[Hg] 124 mm[Hg] e CW1 ([facility]) Diastolic blood pressure 72 mm[Hg] 72 mm[Hg] eCW1 ([facility]) Systolic blood pressure 124 mm[Hg] 124 mm[Hg] M EDENT ([facility], [facility]) Diastolic blood pressure 86 mm[Hg] 86 mm[Hg] MEDENT ([facility], [facility]) Heart rate 76 /min 76 /min MEDENT ([facility]) Respiratory rate 15 /min 15 /min MEDENT ( [facility]) Oxygen saturation in Arterial blood by Pulse oximetry 98 % 98 % [facility] ([facility]) Body temperature 96.6 [degF] 96.6 [degF] [facility] Body weight 235.00 [lb_av] 235.00 [lb_av] MEDEN T ([facility]) Body height 66 [in_i] 66 [in_i] [facility] 5'6" Body mass index (BMI) [Ratio] 37.9 kg/m2 37.9 k g/m2 [facility] ([facility]) Body weight 244 [lb_av] 244 [lb_av] eCW1 ([facility]) Body height 65 [in_i] 65 [in_i] eCW1 ([facility]) Body mass index (BMI) [Ratio] 40.60 kg/m2 40.60 kg/m2 eCW1 ([facility]) Systolic blood pressure 128 mm[Hg] 128 mm[Hg] e CW1 ([facility]) Diastolic blood pressure 80 mm[Hg] 80 mm[Hg] eCW1 ([facility]) Body weight 242 [lb_av] 242 [lb_av] eCW1 ([facility]) Body height 65 [in_i] 65 [in_i] eCW1 ([facility]) Body mass index (BMI) [Ratio] 40.27 kg/m2 40.27 kg/m2 eCW1 ([facility]) Heart rate 82 /min 82 /min eCW1 ([facility]) Respiratory rate 18 /min 18 /min eCW1 ([facility]) Body temperature 97.5 [degF] 97.5 [degF] eCW1 ( [facility]) Systolic blood pressure 122 mm[Hg] 122 mm[Hg] e CW1 ([facility]) Diastolic blood pressure 64 mm[Hg] 64 mm[Hg] eCW1 ([facility]) Patient Treatment Plan of Care Planned Activity Planned Date Details Description Data Source (s) Amoxicillin 875 MG / Clavulanate 125 MG Oral Tablet 11/23/19 21 12:00:00 AM EST eCW1 ([facility]) Amoxicillin 875 MG / Clavulanate 125 MG Oral Tablet 11/23/19 21 12:00:00 AM EST eCW1 ([facility]) Amoxicillin 875 MG / Clavulanate 125 MG Oral Tablet 11/23/19 21 12:00:00 AM EST eCW1 ([facility]) Amoxicillin 875 MG / Clavulanate 125 MG Oral Tablet 11/23/19 21 12:00:00 AM EST eCW1 ([facility]) Amoxicillin 875 MG / Clavulanate 125 MG Oral Tablet 11/23/19 21 12:00:00 AM EST eCW1 ([facility]) Amoxicillin 875 MG / Clavulanate 125 MG Oral Tablet 11/23/19 21 12:00:00 AM EST eCW1 ([facility]) Physical Therapy evaluate and treat 09/02/2020 12:00:00 AM EDT eCW1 ([facility]) Physical Therapy evaluate and treat 09/02/2020 12:00:00 AM EDT eCW1 ([facility]) Physical Therapy evaluate and treat 09/02/2020 12:00:00 AM EDT eCW1 ([facility])
[2021-09-18 09:52] LABS: RSV AMPLIFICATION NEGATIVE (NEGATIVE)
[2021-09-18] MEDS ORDERED: AMIODARONE HCL 150 MG in IV 1 EA IV STA (10:38)
[2021-09-18] MEDS ORDERED: ENOXAPARIN 100MG/1ML SYRINGE (J1650 PER 10MG) SC ONE (10:45)
[2021-09-18] MEDS ORDERED: ETOMIDATE INJ 20MG/10ML VIAL IV ONE (10:45)
[2021-09-18] MEDS ORDERED: ELIQ5TAB PO (14:39)
[2021-09-18] MEDS ORDERED: ATEN25TA PO (14:39)
[2021-09-18 15:26] VITALS: BP 101/58
--- NOTE | 2021-09-19 06:26 | ECGEPIP ---
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1970 Requested By: REINALDO Reyes Order Number: [id number] Reading MD: Fawn Curran Measurements Intervals [place] Rate: 178 P: DE: QRS: -3 QRSD: 76 T: 30 QT: 282 QTc: 485 Interpretive Statements Critical Test Result: High HR , Arrhythmia Atrial fibrillation with rapid ventricular response with premature ventricular or aberra a aberra aberrantly conducted complexes Minimal voltage criteria for LVH, may be normal variant ( R in aVL ) Nonspecific ST abnormality leftward axis Delayed R wave progression Prolonged QTc QRS size fluctuating throughtout - rule out electrical alternans No prior ECG for comparison CLINICAL CORRELATION ADVISED Electronically Signed on 09-19-2021 6:25:46 EST by Fawn Curran
--- NOTE | 2021-09-19 06:33 | ECGEPIP ---
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
== END 2021-09-18 15:47 | disposition home or self-care (01) ==
LOC: M ED 07:48
DX: I48.91 Unspecified atrial fibrillation (principal); I10 Essential (primary) hypertension; J45.909 Unspecified asthma, uncomplicated; K21.9 Gastro-esophageal reflux disease without esophagitis; Z79.899 Other long term (current) drug therapy; Z79.01 Long term (current) use of anticoagulants
CPT/HCPCS: 71045; 80047; 80048; 80076; 80307; 82077; 82550; 82553; 83690; 83735; 83880; 84443; 84484; 85025; 85610; 85652; 85730; 86140; 87631; 92960; 93005; 93041; 94760; 96374; 96375; 99285; J1650

== ENCOUNTER → 2021-12-14 | Outpatient (CLI) | payer OTHER ==
[~2021-12-14] MED LIST changes: +ATEN25TA PO; +ELIQ5TAB PO; +FURO20TA2; +LOSA100T45; -LOSA100T50
== END ==
LOC: M SLEEP 20:00
PROVIDERS: ATTEND Nurse Practitioner Adult Health
DX: G47.30 Sleep apnea, unspecified (principal)

== ENCOUNTER → 2022-06-30 | Outpatient (CLI) | payer OTHER ==
[~2022-06-30] MED LIST changes: +ALBU2.5V10 INH; -ALBU83IN INH
[2022-06-30 10:11] LABS: BASO % 0.6 % (0.0-1.0); EOS # 0.2 10^3/uL (0.0-0.5); EOS % 2.5 % (0.0-3.0); HEMATOCRIT 33.5 % (36.0-47.0); HEMOGLOBIN 11.2 g/dl (12.0-15.5); LYMPH # 1.7 10^3/uL (1.5-5.0); LYMPH % 25.1 % (24.0-44.0); MEAN CORPUSCULAR HEMOGLOBIN 33.5 pg (27.0-33.0); MEAN CORPUSCULAR HGB CONC 33.4 g/dl (32.0-36.5); MEAN CORPUSCULAR VOLUME 100.3 fl (80.0-96.0); MONO # 0.4 10^3/uL (0.0-0.8); MONO % 6.3 % (2.0-8.0); NEUTROPHILS # 4.5 10^3/uL (1.5-8.5); NEUTROPHILS % 65.2 % (36.0-66.0); PLATELET COUNT, AUTOMATED 219 10^3/uL (150-450); RED BLOOD COUNT 3.34 10^6/uL (4.00-5.40); WHITE BLOOD COUNT 6.9 10^3/uL (4.0-10.0)
[2022-06-30 10:34] LABS: ALT/SGPT 44 U/L (12-78); BLOOD UREA NITROGEN 15 MG/DL (7-18); CALCIUM LEVEL 8.8 MG/DL (8.5-10.1); CARBON DIOXIDE LEVEL 28 MEQ/L (21-32); CHLORIDE LEVEL 106 MEQ/L (98-107); CHOLESTEROL LEVEL 154 MG/DL (<200); CHOLESTEROL RISK RATIO 2.851 (<5); CREATININE FOR GFR 0.68 MG/DL (0.55-1.30); GLOMERULAR FILTRATION RATE > 60.0 (>51); GLUCOSE, FASTING 90 MG/DL (70-100); HDL CHOLESTEROL 54 MG/DL (>40); LDL CHOLESTEROL 78 MG/DL (<100); NON-HDL-C 100 MG/DL; POTASSIUM SERUM 4.1 MEQ/L (3.5-5.1); SODIUM LEVEL 139 MEQ/L (136-145); TRIGLYCERIDES LEVEL 112 MG/DL (<150)
== END ==
LOC: M LAB 09:34
PROVIDERS: ATTEND Internal Medicine Cardiovascular Disease
DX: I10 Essential (primary) hypertension (principal); I11.9 Hypertensive heart disease without heart failure; I48.0 Paroxysmal atrial fibrillation; Z82.49 Family history of ischemic heart disease and other diseases of the circulatory system

== ENCOUNTER → 2022-08-15 | Outpatient (CLI) | payer OTHER ==
[2022-08-15 18:47] LABS: BASO # 0.1 10^3/uL (0.0-0.2); BASO % 0.5 % (0.0-1.0); EOS # 0.2 10^3/uL (0.0-0.5); EOS % 2.3 % (0.0-3.0); HEMATOCRIT 33.5 % (36.0-47.0); LYMPH % 29.2 % (24.0-44.0); MEAN CORPUSCULAR HEMOGLOBIN 33.5 pg (27.0-33.0); MEAN CORPUSCULAR HGB CONC 32.8 g/dl (32.0-36.5); MEAN CORPUSCULAR VOLUME 102.1 fl (80.0-96.0); MONO # 0.6 10^3/uL (0.0-0.8); MONO % 5.7 % (2.0-8.0); NEUTROPHILS # 6.4 10^3/uL (1.5-8.5); PLATELET COUNT, AUTOMATED 240 10^3/uL (150-450); RED BLOOD COUNT 3.28 10^6/uL (4.00-5.40); WHITE BLOOD COUNT 10.3 10^3/uL (4.0-10.0)
[2022-08-15 19:18] LABS: PERCENT SATURATION 24.4 % (13.2-45.0)
[2022-08-17 07:09] LABS: FOLATE 19.3 ng/mL (>3.0)
== END ==
LOC: M LAB 18:02
PROVIDERS: ATTEND Physician Assistant
DX: D51.8 Other vitamin B12 deficiency anemias (principal)

== ENCOUNTER → 2022-10-14 | Outpatient (CLI) | payer OTHER ==
[~2022-10-14] MED LIST changes: +CVS2500C PO; -HYDR12.55; +HYDR12.55 PO; +MULT-90 PO
[2022-10-14 11:13] LABS: BASO % 0.5 % (0.0-1.0); EOS # 0.2 10^3/uL (0.0-0.5); EOS % 2.3 % (0.0-3.0); HEMATOCRIT 33.5 % (36.0-47.0); HEMOGLOBIN 10.9 g/dl (12.0-15.5); LYMPH # 1.9 10^3/uL (1.5-5.0); LYMPH % 25.5 % (24.0-44.0); MEAN CORPUSCULAR HEMOGLOBIN 32.6 pg (27.0-33.0); MEAN CORPUSCULAR HGB CONC 32.5 g/dl (32.0-36.5); MEAN CORPUSCULAR VOLUME 100.3 fl (80.0-96.0); MONO # 0.4 10^3/uL (0.0-0.8); MONO % 5.7 % (2.0-8.0); NEUTROPHILS # 4.9 10^3/uL (1.5-8.5); NEUTROPHILS % 65.7 % (36.0-66.0); PLATELET COUNT, AUTOMATED 229 10^3/uL (150-450); RED BLOOD COUNT 3.34 10^6/uL (4.00-5.40); WHITE BLOOD COUNT 7.5 10^3/uL (4.0-10.0)
== END ==
LOC: M LAB 10:43
PROVIDERS: ATTEND Physician Assistant
DX: D51.8 Other vitamin B12 deficiency anemias (principal)

== ENCOUNTER → 2022-10-16 | Outpatient (CLI) | payer OTHER | LOC: M LABSMTC 09:31 | PROVIDERS: ATTEND Anesthesiology | DX: Z01.812 Encounter for preprocedural laboratory examination (principal); Z11.52 Encounter for screening for COVID-19 ==

== ENCOUNTER 2022-10-19 10:06 | Day surgery (SDC) | payer OTHER ==
[~2022-10-19] VITALS: Ht 167.6 cm; Wt 108.8 kg
[~2022-10-19 10:06] MED LIST changes: +NS 1,000 ML IV ONE
[2022-10-19] MEDS ORDERED: propofoL 200 MG/20 ML VIAL As Ordered ONE ×2 (10:54→12:23)
[2022-10-19] MEDS ORDERED: fentaNYL 100 MCG/2 ML INJECTION As Ordered ONE (10:54)
[2022-10-19] MEDS ORDERED: LIDOCAINE 2% MDV 20ML VIAL As Ordered ONE (10:54)
[2022-10-19 12:50] VITALS: BP 143/78
== END 2022-10-19 13:00 | disposition home or self-care (01) ==
LOC: M OPP 10:06
PROVIDERS: ATTEND Internal Medicine Gastroenterology
DX: D12.2 Benign neoplasm of ascending colon (principal); D12.3 Benign neoplasm of transverse colon; K63.5 Polyp of colon; K64.8 Other hemorrhoids; D51.9 Vitamin B12 deficiency anemia, unspecified; D50.9 Iron deficiency anemia, unspecified; I48.91 Unspecified atrial fibrillation; I10 Essential (primary) hypertension; K76.89 Other specified diseases of liver; Z79.01 Long term (current) use of anticoagulants; Z79.899 Other long term (current) drug therapy; Z87.442 Personal history of urinary calculi
CPT/HCPCS: 43235; 45385; 88305; J3010

== ENCOUNTER → 2023-01-11 | Outpatient (CLI) | payer BC ==
[~2023-01-11] MED LIST changes: -NS 1,000 ML IV ONE
[2023-01-11 10:04] LABS: BASO % 0.5 % (0.0-1.0); EOS # 0.2 10^3/uL (0.0-0.5); EOS % 2.1 % (0.0-3.0); HEMATOCRIT 35.2 % (36.0-47.0); HEMOGLOBIN 11.2 g/dl (12.0-15.5); LYMPH # 2.1 10^3/uL (1.5-5.0); LYMPH % 25.9 % (24.0-44.0); MEAN CORPUSCULAR HEMOGLOBIN 32.7 pg (27.0-33.0); MEAN CORPUSCULAR HGB CONC 31.8 g/dl (32.0-36.5); MEAN CORPUSCULAR VOLUME 102.9 fl (80.0-96.0); MONO # 0.4 10^3/uL (0.0-0.8); MONO % 5.4 % (2.0-8.0); NEUTROPHILS # 5.3 10^3/uL (1.5-8.5); NEUTROPHILS % 65.9 % (36.0-66.0); PLATELET COUNT, AUTOMATED 245 10^3/uL (150-450); RED BLOOD COUNT 3.42 10^6/uL (4.00-5.40); WHITE BLOOD COUNT 8.1 10^3/uL (4.0-10.0)
[2023-01-11 10:25] LABS: ALBUMIN 3.5 G/DL (3.2-5.2); ALKALINE PHOSPHATASE 132 U/L (46-116); ALT/SGPT 19 U/L (7.0-40); AST/SGOT 16 U/L (<34); BILIRUBIN,TOTAL 0.9 MG/DL (0.3-1.2); BLOOD UREA NITROGEN 17 MG/DL (9-23); CALCIUM LEVEL 8.7 MG/DL (8.5-10.1); CARBON DIOXIDE LEVEL 32 MMOL/L (20-31); CHLORIDE LEVEL 106 MMOL/L (98-107); CHOLESTEROL LEVEL 150 MG/DL (<200); CHOLESTEROL RISK RATIO 3.37 (<5); GLOMERULAR FILTRATION RATE > 60.0 (>51); GLUCOSE, FASTING 99 MG/DL (60-100); HDL CHOLESTEROL 44.5 MG/DL (>40); LDL CHOLESTEROL 82.5 MG/DL (<100); NON-HDL-C 106 MG/DL; POTASSIUM SERUM 3.9 MMOL/L (3.5-5.1); SODIUM LEVEL 140 MMOL/L (136-145); TOTAL PROTEIN 6.8 G/DL (5.7-8.2); TRIGLYCERIDES LEVEL 115 MG/DL (<150)
[2023-01-11 10:26] LABS: THYROID STIMULATING HORMONE 1.495 uIU/ML (0.55-4.78); VITAMIN B12 LEVEL 674 PG/ML (211-911)
== END ==
LOC: M LAB 09:17
PROVIDERS: ATTEND Physician Assistant
DX: D51.9 Vitamin B12 deficiency anemia, unspecified (principal); I48.91 Unspecified atrial fibrillation; L67.8 Other hair color and hair shaft abnormalities; I10 Essential (primary) hypertension

== ENCOUNTER → 2023-12-11 | Outpatient (CLI) | payer BC ==
[~2023-12-11] MED LIST changes: -LOSA100T45; +LOSA100T46
[2023-12-11 10:15] LABS: BASO % 0.4 % (0.0-1.0); EOS # 0.2 10^3/uL (0.0-0.5); EOS % 3.1 % (0.0-3.0); HEMATOCRIT 34.7 % (36.0-47.0); HEMOGLOBIN 11.4 g/dl (12.0-15.5); LYMPH # 1.7 10^3/uL (1.5-5.0); LYMPH % 24.6 % (24.0-44.0); MEAN CORPUSCULAR HGB CONC 32.9 g/dl (32.0-36.5); MEAN CORPUSCULAR VOLUME 100.6 fl (80.0-96.0); MONO # 0.4 10^3/uL (0.0-0.8); MONO % 5.8 % (2.0-8.0); NEUTROPHILS # 4.6 10^3/uL (1.5-8.5); NEUTROPHILS % 65.8 % (36.0-66.0); PLATELET COUNT, AUTOMATED 205 10^3/uL (150-450); RED BLOOD COUNT 3.45 10^6/uL (4.00-5.40)
[2023-12-11 10:39] LABS: HEMOGLOBIN A1c 4.5 % (4.0-6.0)
[2023-12-11 10:44] LABS: ALBUMIN 3.5 G/DL (3.2-5.2); ALKALINE PHOSPHATASE 124 U/L (46-116); ALT/SGPT 32 U/L (7.0-40); AST/SGOT 21 U/L (<34); BLOOD UREA NITROGEN 15 MG/DL (9-23); CALCIUM LEVEL 9.2 MG/DL (8.5-10.1); CARBON DIOXIDE LEVEL 30 MMOL/L (20-31); CHLORIDE LEVEL 107 MMOL/L (98-107); CHOLESTEROL LEVEL 171 MG/DL (<200); CHOLESTEROL RISK RATIO 3.44 (<5); CREATININE FOR GFR 0.77 MG/DL (0.55-1.30); GLOMERULAR FILTRATION RATE > 60.0 (>51); GLUCOSE, FASTING 96 MG/DL (60-100); HDL CHOLESTEROL 49.7 MG/DL (>40); LDL CHOLESTEROL 88.5 MG/DL (<100); NON-HDL-C 121.3 MG/DL; SODIUM LEVEL 141 MMOL/L (136-145); TOTAL PROTEIN 6.6 G/DL (5.7-8.2); TRIGLYCERIDES LEVEL 164 MG/DL (<150)
[2023-12-11 10:46] LABS: FREE T4 1.16 NG/DL (0.89-1.76); THYROID STIMULATING HORMONE 1.495 uIU/ML (0.55-4.78); TOTAL 25(OH) VITAMIN D 26.3 NG/ML (20.0-100.0)
== END ==
LOC: M LAB 08:46
PROVIDERS: ATTEND Physician Assistant
DX: Z13.1 Encounter for screening for diabetes mellitus (principal); I10 Essential (primary) hypertension; N95.1 Menopausal and female climacteric states; Z13.220 Encounter for screening for lipoid disorders

== ENCOUNTER → 2024-07-29 | Outpatient (CLI) | payer BC ==
[2024-07-29 10:04] LABS: CHOLESTEROL RISK RATIO 3.53 (<5); HDL CHOLESTEROL 47.5 MG/DL (>40); LDL CHOLESTEROL 86.9 MG/DL (<100); NON-HDL-C 120.5 MG/DL
[2024-07-29 10:05] LABS: FREE T4 1.26 NG/DL (0.89-1.76); THYROID STIMULATING HORMONE 1.557 uIU/ML (0.55-4.78)
== END ==
LOC: M LAB 08:58
PROVIDERS: ATTEND Internal Medicine Cardiovascular Disease
DX: I48.0 Paroxysmal atrial fibrillation (principal); I10 Essential (primary) hypertension

== ENCOUNTER → 2024-07-29 | Outpatient (CLI) | payer BC ==
[2024-07-29 09:30] LABS: BASO # 0.1 10^3/uL (0.0-0.2); BASO % 0.7 % (0.0-1.0); EOS # 0.2 10^3/uL (0.0-0.5); EOS % 2.8 % (0.0-3.0); HEMATOCRIT 33.7 % (36.0-47.0); HEMATOCRIT 34.2 % (36.0-47.0); HEMOGLOBIN 11.3 g/dl (12.0-15.5); LYMPH # 1.8 10^3/uL (1.5-5.0); LYMPH % 24.5 % (24.0-44.0); MEAN CORPUSCULAR HEMOGLOBIN 33.4 pg (27.0-33.0); MEAN CORPUSCULAR HGB CONC 33.5 g/dl (32.0-36.5); MEAN CORPUSCULAR VOLUME 99.7 fl (80.0-96.0); MONO # 0.5 10^3/uL (0.0-0.8); NEUTROPHILS % 65.7 % (36.0-66.0); PLATELET COUNT, AUTOMATED 228 10^3/uL (150-450); RED BLOOD COUNT 3.38 10^6/uL (4.00-5.40); WHITE BLOOD COUNT 7.5 10^3/uL (4.0-10.0)
[2024-07-29 10:03] LABS: ALBUMIN 3.6 G/DL (3.2-5.2); ALKALINE PHOSPHATASE 153 U/L (46-116); ALT/SGPT 21 U/L (7.0-40); AST/SGOT 18 U/L (<34); BILIRUBIN,TOTAL 1.1 MG/DL (0.3-1.2); BLOOD UREA NITROGEN 12 MG/DL (9-23); CALCIUM LEVEL 8.7 MG/DL (8.5-10.1); CARBON DIOXIDE LEVEL 31 MMOL/L (20-31); CHLORIDE LEVEL 105 MMOL/L (98-107); CREATININE FOR GFR 0.74 MG/DL (0.55-1.30); GLOMERULAR FILTRATION RATE > 60.0 (>51); GLUCOSE, FASTING 86 MG/DL (60-100); IRON (FE) 85 UG/DL (50-170); PERCENT SATURATION 31.8 % (13.2-45.0); POTASSIUM SERUM 3.4 MMOL/L (3.5-5.1); SODIUM LEVEL 139 MMOL/L (136-145); TOTAL IRON BINDING CAPACITY 267 UG/DL (250-425); TOTAL PROTEIN 6.8 G/DL (5.7-8.2)
[2024-07-29 10:06] LABS: FERRITIN 126.9 NG/ML (7.3-270.7)
[2024-07-29 10:07] LABS: VITAMIN B12 LEVEL 682 PG/ML (211-911)
== END ==
LOC: M LAB 08:59
PROVIDERS: ATTEND Physician Assistant
DX: E53.8 Deficiency of other specified B group vitamins (principal); I10 Essential (primary) hypertension; I48.91 Unspecified atrial fibrillation

== ENCOUNTER → 2024-08-04 | Outpatient (CLI) | payer BC | LOC: M RAD 16:58 | PROVIDERS: ATTEND Physician Assistant | DX: M23.91 Unspecified internal derangement of right knee (principal) ==

== ENCOUNTER → 2025-08-02 | Outpatient (CLI) | payer BC ==
[~2025-08-02] MED LIST changes: -FLOM0.4C39 PO; +TAMS-18 PO
[2025-08-02 16:04] LABS: BASO # 0.0 10^3/uL (0.0-0.2); BASO % 0.4 % (0.0-1.0); EOS # 0.2 10^3/uL (0.0-0.5); EOS % 2.0 % (0.0-3.0); LYMPH # 2.3 10^3/uL (1.5-5.0); LYMPH % 24.9 % (24.0-44.0); MONO # 0.5 10^3/uL (0.0-0.8); MONO % 5.9 % (2.0-8.0); NEUTROPHILS # 6.1 10^3/uL (1.5-8.5); NEUTROPHILS % 66.5 % (36.0-66.0); PLATELET COUNT, AUTOMATED 276 10^3/uL (150-450)
[2025-08-02 16:16] LABS: ERYTHROCYTE SEDIMENTATION RATE 37 mm/hr (0-30)
[2025-08-02 16:27] LABS: C REACTIVE PROTEIN QUANTITATIV 0.67 MG/DL (<1.0)
[2025-08-02 16:28] LABS: ALT/SGPT 19 U/L (7.0-40); AST/SGOT 19 U/L (<34); CALCIUM LEVEL 8.7 MG/DL (8.5-10.1); CARBON DIOXIDE LEVEL 30 MMOL/L (20-31); CHLORIDE LEVEL 104 MMOL/L (98-107); CHOLESTEROL LEVEL 170 MG/DL (<200); CHOLESTEROL RISK RATIO 3.18 (<5); CREATININE FOR GFR 0.76 MG/DL (0.55-1.30); GLOMERULAR FILTRATION RATE > 90.0 (>51); LDL CHOLESTEROL 95.7 MG/DL (<100); NON-HDL-C 116.7 MG/DL; POTASSIUM SERUM 3.9 MMOL/L (3.5-5.1); RHEUMATOID FACTOR QUANT 4.0 IU/ML (<14); SODIUM LEVEL 141 MMOL/L (136-145); TRIGLYCERIDES LEVEL 105 MG/DL (<150)
[2025-08-02 16:29] LABS: FREE T4 1.27 NG/DL (0.89-1.76); TOTAL 25(OH) VITAMIN D 25.1 NG/ML (20.0-100.0); VITAMIN B12 LEVEL 1954 PG/ML (211-911)
[2025-08-05 02:02] LABS: Estimated Ave Glu(eAG) 4.6 mmol/L
== END ==
LOC: M RAD 14:43
PROVIDERS: ATTEND Nurse Practitioner Family
DX: R22.30 Localized swelling, mass and lump, unspecified upper limb (principal); M25.50 Pain in unspecified joint; N95.1 Menopausal and female climacteric states; Z13.1 Encounter for screening for diabetes mellitus; E07.9 Disorder of thyroid, unspecified; E53.8 Deficiency of other specified B group vitamins; Z80.3 Family history of malignant neoplasm of breast; Z13.220 Encounter for screening for lipoid disorders; Z84.89 Family history of other specified conditions